=== PATIENT | female | born 1980 | race African-American/Black ===

== ENCOUNTER 2018-07-09 13:55 | Emergency (ER) | payer MEDICAID ==
--- NOTE | 2018-07-09 15:43 | RADIOLOGY REPORT (SQ) ---
EXAM DESCRIPTION: CHEST 2 VIEWS COMPLETED DATE/TIME: 07/09/2018 3:26 pm REASON FOR STUDY: sob COMPARISON: 11/09/2012 EXAM PARAMETERS: NUMBER OF VIEWS: two views TECHNIQUE: Digital Frontal and Lateral radiographic views of the chest acquired. RADIATION DOSE: NA LIMITATIONS: none FINDINGS: LUNGS AND PLEURA: No opacities, masses or pneumothorax. No pleural effusion. MEDIASTINUM AND HILAR STRUCTURES: No masses or contour abnormalities. HEART AND VASCULAR STRUCTURES: Heart normal size. No evidence for failure. BONES: No acute findings. HARDWARE: None in the chest. OTHER: No other significant finding. IMPRESSION: NO ACUTE RADIOGRAPHIC FINDING IN THE CHEST. TECHNICAL DOCUMENTATION: JOB ID: [id number] [employer]- All Rights Reserved Reading location - IP/workstation name: [email or web address]
[2018-07-09 18:01] LABS: ABSOLUTE BASOPHILS # (AUTO) 0.1 10^3/uL (0.0-0.2); ABSOLUTE EOSINOPHILS # (AUTO) 0.2 10^3/uL (0.0-0.6); ABSOLUTE LYMPHOCYTES (AUTO) 1.9 10^3/uL (0.5-4.7); ABSOLUTE MONOCYTES (AUTO) 0.6 10^3/uL (0.1-1.4); ABSOLUTE NEUT (AUTO) 3.3 10^3/uL (1.7-8.2); BASOPHILS % (AUTO) 0.9 % (0-2); EOSINOPHILS % (AUTO) 3.6 % (0-6); HEMATOCRIT 29.7 % (36.0-47.0); HEMOGLOBIN 9.1 g/dL (12.0-15.5); LYMPHOCYTES % (AUTO) 31.5 % (13-45); MEAN CORPUSCULAR HEMOGLOBIN 18.5 pg (27.0-33.4); MEAN CORPUSCULAR HGB CONC 30.5 g/dL (32.0-36.0); MONOCYTES % (AUTO) 9.8 % (3-13); PLATELET COUNT 369 10^3/uL (150-450); RED BLOOD COUNT 4.91 10^6/uL (3.72-5.28); RED CELL DISTRIBUTION WIDTH 19.9 % (11.5-14.0); SEGMENTED NEUTROPHILS % (AUTO) 54.2 % (42-78); TOTAL CELLS COUNTED % (AUTO) 100 %
[2018-07-09 18:11] LABS: INTERNATIONAL RATION (INR) 0.93; PROTHROMBIN TIME 12.9 SEC (11.4-15.4)
[2018-07-09 18:22] LABS: ALANINE AMINOTRANSFERASE 18 U/L (9-52); ALBUMIN 4.2 g/dL (3.5-5.0); ALKALINE PHOSPHATASE 94 U/L (38-126); ANION GAP 12 (5-19); ASPARTATE AMINO TRANSFERASE 21 U/L (14-36); BILIRUBIN,DIRECT 0.3 mg/dL (0.0-0.4); BILIRUBIN,TOTAL 0.3 mg/dL (0.2-1.3); BLOOD UREA NITROGEN 10 mg/dL (7-20); CALCIUM 9.3 mg/dL (8.4-10.2); CARBON DIOXIDE 25 mmol/L (22-30); CHLORIDE 105 mmol/L (98-107); CREATINE KINASE 75 U/L (30-135); GLUCOSE 77 mg/dL (75-110); POTASSIUM 4.9 mmol/L (3.6-5.0); SODIUM 141.7 mmol/L (137-145); TOTAL PROTEIN 7.8 g/dL (6.3-8.2)
[2018-07-09 18:31] LABS: CREATINE KINASE MB 0.35 ng/mL (<4.55)
[2018-07-09 18:32] LABS: TROPONIN I < 0.012 ng/mL
[2018-07-09 18:36] LABS: MEAN CORPUSCULAR VOLUME 61 fl (80-97)
[2018-07-09 18:40] LABS: POLYCHROMASIA SLIGHT
[2018-07-09 18:41] LABS: ANISOCYTOSIS 2+; HYPOCHROMASIA 1+; OVALOCYTES 2+; PLATELET COMMENT ADEQUATE; PLATELET LARGE PRESENT; POIKILOCYTOSIS 1+; TEAR DROP CELLS SLIGHT
--- NOTE | 2018-07-09 19:47 | EKG REPORT ---
SEVERITY:- BORDERLINE ECG - SINUS RHYTHM BORDERLINE T ABNORMALITIES, DIFFUSE LEADS : Confirmed by: Lars Julio MD 09-Jul-2018 19:47:32
--- NOTE | 2018-07-09 20:28 | RADIOLOGY REPORT (SQ) ---
EXAM DESCRIPTION: CTA CHEST COMPLETED DATE/TIME: 07/09/2018 8:09 pm REASON FOR STUDY: cp/sob COMPARISON: Chest x-ray 07/09/2018 CT abdomen and pelvis 10/05/2014 TECHNIQUE: CT scan of the chest performed using helical scanning technique with dynamic intravenous contrast injection. Images reviewed with lung, soft tissue and bone windows. Reconstructed coronal and sagittal MPR images reviewed. Additional 3 dimensional post-processing performed to develop Maximal Intensity Projection images (SD P). All images stored on PACS. All CT scanners at this facility use dose modulation, iterative reconstruction, and/or weight based d osing when appropriate to reduce radiation dose to as low as reasonably achievable (ALARA). [facility]: Dose Right [facility]: CareDose [facility]: Dose Right [facility]: Teradose 4D [facility]: [place] CONTRAST TYPE AND DOSE: contrast/concentration: Isovue 350.00 mg/ml; Total Contrast Delivered: 80.0 ml; Total Saline Delivered: 74.0 ml Contrast bolus optimized for the pulmonary arteries. Not diagnostic for the aorta. RENAL FUNCTION: BUN 10 creatinine 0.8 RADIATION DOSE: CT Rad equipment meets quality standard of care and radiation dose reduction techniq ues were employed. CTDIvol: 6.6 - 28.1 mGy. DLP: 1072 mGy-cm. . LIMITATIONS: None. FINDINGS: LUNGS AND PLEURA: No masses, infiltrates, or pneumothorax. No pleural effusions or pleura l calcifications. AORTA AND GREAT VESSELS: No aneurysm. Contrast bolus not optimized for the aorta. HEART: No pericardial effusion. No significant coronary artery calcifications. PULMONARY ARTERIES: No emboli visualized in the main pulmonary arteries or the segmental branches. HILAR AND MEDIASTINAL STRUCTURES: No identified masses or abnormal nodes. HARDWARE: None in the chest. UPPER ABDOMEN: There is a stable thin-walled cyst in the anterior abdominal wall anterior to the live r. THYROID AND OTHER SOFT TISSUES: No masses. No adenopathy. BONES: No acute or significant finding. 3D MIPS: Confirm above findings. OTHER: No other significant finding. IMPRESSION: 1. There is no evidence of pulmonary embolus. 2. There is a stable anterior abdominal cyst. COMMENT: Quality ID # [id number]: Final reports with documentation of one or more dose reduction techniques (e.g., Automated exposure control, adjustment of the mA and/or kV according to patient size, use of iterative reconstruction technique) TECHNICAL DOCUMENTATION: JOB ID: [id number] [employer]- All Rights Reserved Reading location - IP/workstation name: [email or web address]
--- NOTE | 2018-07-09 22:04 | ER Document Report ---
ED General - General Chief Complaint: Chest Pain Stated Complaint: CHEST PAINS Time Seen by Provider: 07/09/18 14:48 Mode of Arrival: Ambulatory Information source: Patient Notes: This is a 38-year-old female with no medical problems who presented to the emergency room with some sharp chest wall pain radiating to the left arm. She states she may have been a little short of breath. She was nauseated at the time. She states she has had a couple of episodes like this in the last week. She denies any known cardiology history. She has no history of VTE. No family history of PE or DVT. She does have a family history of coronary artery disease on her father's side TRAVEL OUTSIDE OF THE [place] IN LAST 30 DAYS: No - HPI Onset: Just prior to arrival Onset/Duration: Gradual Quality of pain: Sharp Severity: Moderate Pain Level: 3 Associated symptoms: Chest pain, Shortness of breath Exacerbated by: Movement Relieved by: Denies Similar symptoms previously: Yes Recently seen / treated by doctor: No - Related Data Allergies/Adverse Reactions: No Known Allergies Allergy (Verified 07/09/18 13:56) Past Medical History - General Information source: Patient - Social History Smoking Status: Never Smoker Cigarette use (# per day): No Chew tobacco use (# tins/day): No Frequency of alcohol use: None Drug Abuse: None Lives with: Family Family History: Reviewed & Not Pertinent Patient has suicidal ideation: No Patient has homicidal ideation: No - Medical History Medical History: Negative Renal/ Medical History: Denies: Hx Peritoneal Dialysis Past Surgical History: Reports: Hx Tonsillectomy, Hx Tubal Ligation - Immunizations Hx Diphtheria, Pertussis, Tetanus Vaccination: Yes Review of Systems - Review of Systems Constitutional: denies: Chills, Fever EENT: No symptoms reported Cardiovascular: See HPI Respiratory: See HPI Gastrointestinal: No symptoms reported Genitourinary: No symptoms reported Female Genitourinary: No symptoms reported Musculoskeletal: No symptoms reported Skin: No symptoms reported Hematologic/Lymphatic: No symptoms reported Neurological/Psychological: No symptoms reported Physical Exam - Vital signs Vitals: Temp Pulse Resp BP Pulse Ox 98.1 F 89 20 141/89 H 100 07/09/18 14:02 07/09/18 14:02 07/09/18 14:02 07/09/18 14:02 07/09/18 14:02 Notes: Physical exam: GENERAL: 38-year-old female, alert and oriented 3, no acute distress HEAD: Atraumatic, normocephalic. EYES: Pupils equal round and reactive to light, extraocular movements intact, sclera anicteric, conjunctiva are normal. ENT: TMs normal, nares patent, oropharynx clear without exudates. Moist mucous membranes. NECK: Normal range of motion, supple without obvious mass or JVD. LUNGS: Breath sounds clear to auscultation bilaterally and equal. No wheezes rales or rhonchi. HEART: Regular rate and rhythm without murmurs, rubs or gallops. ABDOMEN: Soft, normoactive bowel sounds. No tenderness to palpation. No guarding, no rebound. No masses appreciated. EXTREMITIES: Normal range of motion, no pitting or edema. No clubbing or cyanosis. NEUROLOGICAL: Cranial nerves II through XII grossly intact. Normal speech, moving all extremities. PSYCH: Normal mood, normal affect. SKIN: Warm, Dry, normal turgor, no rashes or lesions noted. Course - Re-evaluation Re-evalutation: 07/10/18 02:49 Note: Patient was comfortable at the time of my exam. She was no longer having any symptoms. Her heart score was 1 and her cardiac enzymes were normal. We will have her follow-up with her compensation specialist. She was PERC negative but did have a d-dimer which was in the positive range so a CTA was done and showed no evidence of pulmonary emboli. She had no calf tenderness or swelling. 07/10/18 02:49 - Vital Signs Vital signs: Temp Pulse Resp BP Pulse Ox 98.2 F 89 18 135/81 H 100 07/09/18 22:01 07/09/18 14:02 07/09/18 22:01 07/09/18 22:01 07/09/18 22:01 - Laboratory Result Diagrams: 07/09/18 16:40 07/09/18 16:40 Laboratory results interpreted by me: 07/09/18 07/09/18 16:40 16:40 Hgb 9.1 L Hct 29.7 L MCV 61 L MCH 18.5 L MCHC 30.5 L RDW 19.9 H D-Dimer 0.79 H - Diagnostic Test Radiology reviewed: Image reviewed, Reports reviewed - CTA shows no evidence of pulmonary emboli - EKG Interpretation by Me Rate: Normal Rhythm: NSR - EKG shows normal sinus rhythm with a ventricular rate of 87, no acute ST-T wave changes compared to EKG November 2012. Discharge - Discharge Clinical Impression: Chest wall pain Condition: Stable Disposition: HOME, SELF-CARE Additional Instructions: As we discussed, the CTA showed no evidence of blood clots in the lungs. The lungs look quite good. Your blood tests showed normal electrolytes, kidney function and your heart tests were normal. You do have some anemia which is most likely iron deficient anemia given your history. I would like you to follow-up with your primary care doctor. I do recommend he follow-up with a compensation specialist. I put Dr. Bowie's number on the chart. Call tomorrow and tell the electric distribution checker you were in the emergency room for chest pain and the ER doctor would like you seen within the next week or so. A copy of today's lab work and radiology reports with you to your primary care doctor. In the meantime, return to the emergency room for any worsening pain, worsening shortness of breath or any concerns or getting worse. As we discussed, the CT did show an incidental finding of a small cyst in the abdominal wall on the right side of the abdomen. It does appear to be a simple cyst. Forms: Return to Work Referrals: SHU BOWIE MD [ACTIVE STAFF] - Follow up tomorrow (This is the number the compensation specialist) MELISSA SCRUGGS MD [ACTIVE STAFF] - Follow up tomorrow (Call tomorrow for the next available appointment. This is the number for a good primary care doctor affiliated with the hospital)
[2018-07-09 22:26] VITALS: BP 135/81
[2018-07-11 13:36] LABS: PATH REVIEW PATHOLOGIST REVIEWED
== END 2018-07-09 22:26 | disposition home or self-care (01) ==
LOC: ER 13:55
DX: R07.89 Other chest pain (principal); R11.0 Nausea; R79.1 Abnormal coagulation profile; Z82.49 Family history of ischemic heart disease and other diseases of the circulatory system
CPT/HCPCS: 36415; 71046; 71275; 80053; 82550; 82553; 84484; 85025; 85379; 85610; 93005; 93010; 99285

== ENCOUNTER 2019-03-15 22:39 | Emergency (ER) | payer SELFPAY ==
--- NOTE | 2019-03-15 23:12 | ER Document Report ---
ED General - General Chief Complaint: Chest Pain Stated Complaint: CHEST PAIN Time Seen by Provider: 03/15/19 23:10 Notes: Patient is a pleasant 39-year-old female presents with complaints of feeling unwell today. She says she still feels nauseous and well on her way home from work. She did develop a slight headache which she took some ifec-kdm-blzpbhb medicine for at home. She says her headache went away but she started to feel anxious and felt chest tightness. She said she started to hyperventilate panic and therefore called the ambulance. She is brought to the ER. When she got to the ER she was found to have a fever of 103. She says she has had multiple episodes of vomiting. No diarrhea. No abdominal pain she has a some pain in epigastric region associate with the vomiting. No blood in her emesis. No blood in her stool. She is currently on her menstrual period. No dysuria. No abnormal vaginal discharge. No sick contacts that she is aware of. No recent travel outside the country. She takes no medications and is otherwise healthy. TRAVEL OUTSIDE OF THE [place] IN LAST 30 DAYS: No - Related Data Allergies/Adverse Reactions: No Known Allergies Allergy (Verified 07/09/18 13:56) Past Medical History - Social History Smoking Status: Never Smoker Frequency of alcohol use: None Drug Abuse: None Family History: Reviewed & Not Pertinent Renal/ Medical History: Denies: Hx Peritoneal Dialysis Past Surgical History: Reports: Hx Tonsillectomy, Hx Tubal Ligation - Immunizations Hx Diphtheria, Pertussis, Tetanus Vaccination: Yes Review of Systems - Review of Systems Notes: My Normal Review Basic REVIEW OF SYSTEMS: CONSTITUTIONAL : Denies fever, chills, or sweats. Denies recent illness. EENT: Denies eye, ear, throat, or mouth pain or symptoms. Denies nasal or sinus congestion. CARDIOVASCULAR: Chest tightness RESPIRATORY: Denies cough, cold, or chest congestion. Denies shortness of breath, difficulty breathing, or wheezing. GASTROINTESTINAL: mild epigastric abdominal pain. recurrent vomiting GENITOURINARY: Denies difficulty urinating, painful urination, burning, frequency, or blood in urine. FEMALE GENITOURINARY: Denies vaginal bleeding, abnormal or irregular periods. LMP: Currently on menstrual period MUSCULOSKELETAL: Denies neck or back pain or joint pain or swelling. SKIN: Denies rash or skin lesions. HEMATOLOGIC : Denies easy bruising or bleeding. NEUROLOGICAL: Denies altered mental status or loss of consciousness. Had a headache which has since resolved.. Denies weakness or paralysis or loss of use of either side. Denies problems with gait or speech. Denies sensory or motor loss. ALL OTHER SYSTEMS REVIEWED AND NEGATIVE. Physical Exam - Vital signs Vitals: Temp Pulse Resp BP Pulse Ox 103.0 F H 106 H 20 137/85 H 100 03/15/19 23:02 03/15/19 23:02 03/15/19 23:02 03/15/19 23:02 03/15/19 23:02 - Notes Notes: General Appearance: Well nourished, alert, cooperative, no acute distress, no obvious discomfort. Anxious appearing Vitals: reviewed, See vital signs table. Head: no swelling or tenderness to the head Eyes: PERRL, EOMI, Conjuctiva clear Mouth: No decreasd moisture Throat: No tonsillar inflammation, No airway obstruction, No lymphadenopathy Neck: Supple, no neck tenderness Lungs: No wheezing, No rales, No rhonci, No accessory muscle use, good air exchange bilaterally. Heart: Normal rate, Regular rythm, No murmur, no rub Abdomen: Normal BS, soft, No rigidity, mild epigastric abdominal tenderness to palpation. No right upper quadrant tenderness to palpation. Lower abdomen is nontender., No guarding, no rebound, no abdominal masses, no organomegaly Extremities: good pulses in all extremities, no swelling or tenderness in the extremities, no edema. Skin: warm, dry, appropriate color, no rash Neuro: speech clear, oriented x 3, normal affect, responds appropriately to questions. Course - Re-evaluation Re-evalutation: 03/16/19 01:38 On reevaluation her nausea is much improved. She still has some mild intermittent tachycardia and still has not urinated therefore give her another liter of fluids. 03/16/19 05:41 Urinalysis shows evidence of urinary tract infection. This likely she is having a fever and felt unwell today. Vital signs are much improved and she looks and feels much improved. I will discharge her Keflex as well as with Zofran. I encouraged her return to ER if she has recurrent fevers not responding to Tylenol, vomiting, or she feels that she is worsening in any way. Patient agrees with plan will be discharged home. Dictation of this chart was performed using voice recognition software; therefore, there may be some unintended grammatical errors. - Vital Signs Vital signs: Temp Pulse Resp BP Pulse Ox 98.7 F 106 H 19 111/72 98 03/16/19 01:54 03/15/19 23:02 03/16/19 03:29 03/16/19 03:33 03/16/19 03:29 - Laboratory Result Diagrams: 03/15/19 23:24 03/15/19 23:24 Laboratory results interpreted by me: 03/15/19 03/15/19 03/16/19 23:24 23:24 02:05 Hgb 7.9 L Hct 26.1 L MCV 59 L MCH 17.8 L MCHC 30.4 L RDW 20.4 H Seg Neuts % (Manual) 90 H Band Neutrophils % 1 L Lymphocytes % (Manual) 6 L Monocytes % (Manual) 2 L Carbon Dioxide 21 L Urine Ketones TRACE H Urine Blood LARGE H Urine Nitrite POSITIVE H Ur Leukocyte Esterase LARGE H - EKG Interpretation by Me Additional EKG results interpreted by me: 03/15/19 23:11 EKG is reviewed and interpreted by me. EKG shows sinus rhythm with a rate of [address] segment elevation. VA interval, QRS duration, QT intervals are within normal range. Old EKG for comparison is from July 09, 2018. Discharge - Discharge Clinical Impression: Anemia, UTI (urinary tract infection), Fever, Chest tightness Condition: Good Disposition: HOME, SELF-CARE Additional Instructions: Your urinalysis shows evidence of a urinary tract infection. This likely is what is causing your fever and making you feel unwell. Please take the antibiotic as prescribed. Please have a low threshold to return to ER if you have worsening fevers not responding to Tylenol, intractable vomiting, severe abdominal pain, severe chest pain, or if you feel that you are worsening in any way. Please follow-up with a physician in 2 to 3 days for reevaluation. You are welcome to return to the ER for reevaluation if you do not have a physician in community to follow-up with. Prescriptions: RX: Cephalexin Monohydrate [Keflex 500 mg Capsule] 500 mg PO BID #14 capsule Ondansetron [Zofran Odt 4 mg Tablet] 1 tab PO Q4H PRN #15 tab.rapdis PRN Reason: For Nausea/Vomiting Forms: Return to Work
[2019-03-15] MEDS ORDERED: NORMAL SALINE 1000 ML 1,000 ML IV ONE (23:17)
[2019-03-15] MEDS ORDERED: ONDANSETRON HCL INJ/PF 4 MG/2 ML SDV IV ONE (23:17)
[2019-03-15] MEDS ORDERED: ACETAMINOPHEN 325 MG TABLET PO ONE (23:19)
[2019-03-15 23:38] LABS: HEMATOCRIT 26.1 % (36.0-47.0); MEAN CORPUSCULAR HEMOGLOBIN 17.8 pg (27.0-33.4); MEAN CORPUSCULAR HGB CONC 30.4 g/dL (32.0-36.0); PLATELET COUNT 224 10^3/uL (150-450); RED BLOOD COUNT 4.47 10^6/uL (3.72-5.28); RED CELL DISTRIBUTION WIDTH 20.4 % (11.5-14.0)
[2019-03-15 23:46] LABS: HEMOGLOBIN 7.9 g/dL (12.0-15.5)
--- NOTE | 2019-03-15 23:46 | EKG REPORT ---
SEVERITY:- BORDERLINE ECG - SINUS TACHYCARDIA BORDERLINE T ABNORMALITIES, DIFFUSE LEADS : Confirmed by: Enid Sampson MD 15-Mar-2019 23:46:23
--- NOTE | 2019-03-15 23:57 | RADIOLOGY REPORT (SQ) ---
EXAM DESCRIPTION: XR CHEST 1 VIEW COMPLETED DATE/TME: 03/15/2019 23:17 CLINICAL HISTORY: 39 years, Female, fever, chest pain COMPARISON: Prior study from 07/09/2018 NUMBER OF VIEWS: One TECHNIQUE: Single frontal view of the chest was obtained LIMITATIONS: None. FINDINGS: Cardiac and mediastinal contours are normal in appearance. Lungs are clear. No pleural effusion or pneumothorax. IMPRESSION: No acute disease. copyright 2010 [employer]- All Rights Reserved
[2019-03-15 23:59] LABS: ALANINE AMINOTRANSFERASE 21 U/L (9-52); ALBUMIN 3.7 g/dL (3.5-5.0); ALKALINE PHOSPHATASE 101 U/L (38-126); ANION GAP 13 (5-19); ASPARTATE AMINO TRANSFERASE 18 U/L (14-36); BILIRUBIN,DIRECT 0.2 mg/dL (0.0-0.4); BILIRUBIN,TOTAL 0.6 mg/dL (0.2-1.3); BLOOD UREA NITROGEN 14 mg/dL (7-20); CALCIUM 9.2 mg/dL (8.4-10.2); CARBON DIOXIDE 21 mmol/L (22-30); CHLORIDE 105 mmol/L (98-107); GLUCOSE 107 mg/dL (75-110); POTASSIUM 3.9 mmol/L (3.6-5.0); SODIUM 139.1 mmol/L (137-145)
[2019-03-16] LABS: ABSOLUTE LYMPHOCYTES# (MANUAL) 0.5 10^3/uL (0.5-4.7); ABSOLUTE MONOCYTES # (MANUAL) 0.2 10^3/uL (0.1-1.4); ABSOLUTE NEUTROPHILS# (MANUAL) 7.3 10^3/uL (1.7-8.2); BAND NEUTROPHILS % (MANUAL) 1 % (3-5); BASOPHILS % (MANUAL) 0 % (0-2); EOSINOPHILS % (MANUAL) 1 % (0-6); HYPOCHROMASIA 1+; LYMPHOCYTES % (MANUAL) 6 % (13-45); MONOCYTES % (MANUAL) 2 % (3-13); POLYCHROMASIA SLIGHT; SEGMENTED NEUTROPHILS % (MAN) 90 % (42-78); TOTAL CELLS COUNTED 100
[2019-03-16 00:01] LABS: ANISOCYTOSIS 2+; BURR CELLS 1+; OVALOCYTES SLIGHT; PLATELET COMMENT ADEQUATE; POIKILOCYTOSIS 1+; SCHISTOCYTES SLIGHT; TARGET CELLS SLIGHT
[2019-03-16 00:02] LABS: MEAN CORPUSCULAR VOLUME 59 fl (80-97)
[2019-03-16 01:06] LABS: A TYPE INFLUENZA AG NEGATIVE (NEGATIVE); B INFLUENZA AG NEGATIVE (NEGATIVE)
[2019-03-16] MEDS ORDERED: NORMAL SALINE 1000 ML 1,000 ML IV ONE (01:33)
[2019-03-16 02:21] LABS: APPEARANCE,URINE CLOUDY; BILIRUBIN,URINE NEGATIVE (NEGATIVE); COLOR,URINE YELLOW; GLUCOSE, URINE NEGATIVE (NEGATIVE); KETONES,URINE TRACE mg/dL (NEGATIVE); LEUKOCYTE ESTERASE,URINE LARGE (NEGATIVE); NITRITE,URINE POSITIVE (NEGATIVE); PROTEIN,URINE NEGATIVE (NEGATIVE); UROBILINOGEN,URINE NEGATIVE mg/dL (<2.0)
[2019-03-16] MEDS ORDERED: CEFTRIAXONE 1 GM/D5W RTU 1 GM/50 ML RTUPB IV ONE (02:35)
[2019-03-16] MEDS ORDERED: ONDANSETRON ODT 4 MG TAB (6 TAB/ER DISP) PO PRN (03:14)
[2019-03-16 03:34] VITALS: BP 111/72
== END 2019-03-16 03:32 | disposition home or self-care (01) ==
LOC: ER 22:39
DX: R07.89 Other chest pain (principal); N39.0 Urinary tract infection, site not specified; D64.9 Anemia, unspecified; R50.9 Fever, unspecified; R11.2 Nausea with vomiting, unspecified; R10.13 Epigastric pain; R00.0 Tachycardia, unspecified
CPT/HCPCS: 93005; 99285; 96361; 96375; 96365; 36415; 87086; 84703; 85025; 87088; 80053; 81001; 84484; 87186; 87804; 71045; 93010; J2405; J7030 ×2; J0696

== ENCOUNTER 2019-04-11 20:09 | Emergency (ER) | payer SELFPAY ==
[2019-04-11] MEDS ORDERED: IPRATROPIUM/ALBUTEROL 0.5-2.5 MG/3 ML AMPUL NEB ONE (22:18)
[2019-04-11] MEDS ORDERED: ACETAMINOPHEN 325 MG TABLET PO ONE (22:19)
[2019-04-11] MEDS ORDERED: DEXAMETHASONE 4 MG TABLET PO ONE (22:19)
[2019-04-11] MEDS ORDERED: DOXYCYCLINE HYCLATE 100 MG TABLET PO ONE (22:19)
[2019-04-11] MEDS ORDERED: IBUPROFEN 600 MG TABLET PO ONE (22:19)
--- NOTE | 2019-04-11 22:23 | ER Document Report ---
ED General - General Chief Complaint: Cold Symptoms Stated Complaint: FEVER Time Seen by Provider: 04/11/19 22:02 Mode of Arrival: Ambulatory Information source: Patient, [facility] Records Notes: 39-year-old female with no significant past medical history presents with complaint of cough, sore throat, left ear pain, headache. Patient states cough and sore throat started 2 weeks prior to arrival when she was incarcerated. She states just prior to arrival she had a pop in her left ear followed by a mild aching headache in her forehead. Patient reports the cough as productive with green sputum. She does admit to chills, sweats and body aches. Patient has not tried any medication for this. Surgical history includes tonsillectomy, tubal ligation. Patient does not smoke drink or do drugs. She has no known allergies. Patient's urine is bloody but she is currently menstruating. TRAVEL OUTSIDE OF THE [place] IN LAST 30 DAYS: No - HPI Onset: Other Onset/Duration: Gradual, Persistent Quality of pain: Achy Severity: Mild Associated symptoms: Chills, Productive cough, Earache, Nausea, Vomiting, Rhinnorhea, Sore throat, Sweating. denies: Shortness of breath Exacerbated by: Coughing Relieved by: Denies Similar symptoms previously: Yes Recently seen / treated by doctor: No - Related Data Allergies/Adverse Reactions: No Known Allergies Allergy (Verified 07/09/18 13:56) Past Medical History - General Information source: Patient - Social History Smoking Status: Never Smoker Chew tobacco use (# tins/day): No Frequency of alcohol use: None Drug Abuse: None Lives with: Family Family History: Reviewed & Not Pertinent Patient has suicidal ideation: No Patient has homicidal ideation: No - Medical History Medical History: Negative Renal/ Medical History: Denies: Hx Peritoneal Dialysis Psychiatric Medical History: Reports: Hx Depression - and anxiety Past Surgical History: Reports: Hx Tonsillectomy, Hx Tubal Ligation - Immunizations Hx Diphtheria, Pertussis, Tetanus Vaccination: Yes Review of Systems - Review of Systems Notes: REVIEW OF SYSTEMS: CONSTITUTIONAL : Denies fever, chills, or sweats. Denies recent illness. Denies weight loss, recent hospitalizations. EENT: Denies visual changes, eye pain. Denies oral lesions, difficulty swallowing. CARDIOVASCULAR: Denies chest pain. Denies palpitations. Denies lower extremity edema. RESPIRATORY: + cough. Denies shortness of breath, wheezing. GASTROINTESTINAL: Denies abdominal pain or distention. Denies nausea, vomiting, or diarrhea. Denies blood in vomitus, stools, or per rectum. Denies black, tarry stools. Denies constipation. GENITOURINARY: Denies difficulty urinating, painful urination, frequency, blood in urine, or vaginal discharge. MUSCULOSKELETAL: Denies back or neck pain or stiffness. Denies joint pain or swelling. SKIN: Denies rash, lesions or sores. HEMATOLOGIC : Denies easy bruising or bleeding. LYMPHATIC: Denies swollen glands. NEUROLOGICAL: Denies confusion or altered mental status. Denies loss of consciousness. Denies dizziness or lightheadedness. Denies headache. Denies weakness or paralysis. Denies problems difficulty with ambulation, slurred speech. Denies sensory loss, numbness, or tingling. Denies seizures. PSYCHIATRIC: Denies anxiety or stress. Denies depression, suicidal ideation, or homicidal ideation. Denies visual or auditory hallucinations. Physical Exam - Vital signs Vitals: Temp Pulse Resp BP Pulse Ox 97.8 F 73 16 146/89 H 100 04/11/19 21:03 04/11/19 21:03 04/11/19 21:03 04/11/19 21:03 04/11/19 21:03 - Notes Notes: PHYSICAL EXAMINATION: GENERAL: Well-appearing, well-nourished and in no acute distress. HEAD: Atraumatic, normocephalic. EYES: Pupils equal round and reactive to light, extraocular movements intact, conjunctiva are normal. ENT: Nares patent, oropharynx clear without exudates. Moist mucous membranes. NECK: Normal range of motion, supple without lymphadenopathy LUNGS: Breath sounds clear to auscultation bilaterally and equal. No wheezes rales or rhonchi. HEART: Regular rate and rhythm without murmurs ABDOMEN: Soft, nontender, nondistended abdomen. No guarding, no rebound. No masses appreciated. Female : deferred Musculoskeletal: Normal range of motion, no pitting or edema. No cyanosis. NEUROLOGICAL: Cranial nerves grossly intact. Normal speech, normal gait. Normal sensory, motor exams PSYCH: Normal mood, normal affect. SKIN: Warm, Dry, normal turgor, no rashes or lesions noted. Course - Re-evaluation Re-evalutation: Temp Pulse Resp BP Pulse Ox 97.8 F 73 16 146/89 H 100 04/11/19 21:03 04/11/19 21:03 04/11/19 21:03 04/11/19 21:03 04/11/19 21:03 04/12/19 00:15 Presentation is most consistent with a viral upper respiratory infection. Patient is overall well appearance, vitals within normal limits, well-hydrated. Patient denies any headache, neck pain, and has no evidence of meningismus on examination. Lungs are clear bilaterally. No evidence of respiratory distress. Based on clinical exam and history, I do not suspect an acute pneumonia, meningitis, strep pharyngitis, or an acute encephalitis. No laboratory or imaging testing is indicated at this time. Will discharge patient with return precautions and followup recommendations. They are in agreement this plan have verbalized understanding return precautions. - Vital Signs Vital signs: Temp Pulse Resp BP Pulse Ox 97.8 F 73 16 146/89 H 100 04/11/19 21:03 04/11/19 21:03 04/11/19 21:03 04/11/19 21:03 04/11/19 21:03 Discharge - Discharge Clinical Impression: Cough, Ear pain, left URI (upper respiratory infection) Qualifiers: URI type: unspecified URI Qualified Code(s): J06.9 - Acute upper respiratory infection, unspecified Pharyngitis Qualifiers: Pharyngitis/tonsillitis etiology: unspecified etiology Qualified Code(s): J02.9 - Acute pharyngitis, unspecified Headache Qualifiers: Headache type: unspecified Headache chronicity pattern: unspecified pattern Intractability: not intractable Qualified Code(s): R51 - Headache Condition: Good Disposition: HOME, SELF-CARE Instructions: Upper Respiratory Illness ([facility]), Viral Syndrome ([facility]) Additional Instructions: Your symptoms are most likely due to a viral infection it should resolve over the next 7-14 days. You should take erzs-uzi-zieyopn guanfacine per bottle instructions to help thin the mucus. For nasal congestion: I would recommend that you get psvs-sbe-dimsomd oxymetazoline also known is afrin. Use only per bottle instructions and be sure to never use this for more than 3 days if you can develop severe rebound congestion. You may also use tylenol or ibuprofen as needed for aches and thorat discomfort. Please be sure to drink plenty of fluids and get rest. Return to the emergency department he began having difficulty breathing, chest pain, persistent vomiting, or any other symptoms that are conc erning to you. Prescriptions: Doxycycline Hyclate 100 mg PO BID #14 capsule Fluticasone Propionate [Flonase Nasal [place] 50 Mcg/[place] 16 gm] 2 sprays NASL Q12 #1 inhaler Guaifenesin/Pseudoephedrne HCl [Mucinex D ER 1,200-120 mg Tab] 1 each PO Q12H 5 Days #10 tab.er.12h Ibuprofen [Motrin 600 Mg Tablet] 600 mg PO TID #15 tablet Forms: Elevated Blood Pressure
[2019-04-12] MEDS ORDERED: ALBUTEROL SULFATE HFA (90 MCG/PUFF) 8 GM MDI (1 MDI/ER DISP) IH PRN (00:05)
[2019-04-12 03:45] VITALS: BP 150/83
== END 2019-04-12 00:30 | disposition home or self-care (01) ==
LOC: ER 20:09
DX: J02.9 Acute pharyngitis, unspecified (principal); J06.9 Acute upper respiratory infection, unspecified; R51 Headache; R05 Cough; R50.9 Fever, unspecified; H92.02 Otalgia, left ear; Z98.51 Tubal ligation status
CPT/HCPCS: 94640; 99283; J7620

== ENCOUNTER 2020-01-04 13:38 | Emergency (ER) | payer MEDICAID ==
[2020-01-04] MEDS ORDERED: ONDANSETRON HCL INJ/PF 4 MG/2 ML SDV IV ONE (14:42)
[2020-01-04] MEDS ORDERED: NORMAL SALINE 1000 ML 1,000 ML IV ONE (14:42)
--- NOTE | 2020-01-04 14:44 | ER Document Report ---
ED Medical Screen (RME) - General Stated Complaint: ABDOMINAL PAIN Time Seen by Provider: 01/04/20 14:38 Notes: Patient is a 39-year-old female who presents emergency department with a chief complaint of abdominal pain. Patient states that her symptoms started 2 days ago. Patient states that she has also been vomiting. States, "I feel like there is a ball in the middle of my upper stomach." Patient states that she is having bowel movements, denies diarrhea. Last menstrual cycle was December 15. Exam: Tenderness to mid upper abdomen. Patient refused pain medication at this time. Patient will receive Zofran and fluids and will be evaluated in the back. Exam limited due to patient in the sitting position. I have greeted and performed a rapid initial assessment of this patient. A comprehensive ED assessment and evaluation of the patient, analysis of test results and completion of medical decision making process will be conducted by an additional ED providers. TRAVEL OUTSIDE OF THE [place] IN LAST 30 DAYS: No - Related Data Allergies/Adverse Reactions: No Known Allergies Allergy (Verified 07/09/18 13:56) Past Medical History Renal/ Medical History: Denies: Hx Peritoneal Dialysis Psychiatric Medical History: Reports: Hx Depression - and anxiety Past Surgical History: Reports: Hx Tonsillectomy, Hx Tubal Ligation - Immunizations Hx Diphtheria, Pertussis, Tetanus Vaccination: Yes Physical Exam - Vital signs Vitals: Temp Pulse Resp BP Pulse Ox 98.3 F 74 20 146/72 H 100 01/04/20 14:08 01/04/20 14:08 01/04/20 14:08 01/04/20 14:08 01/04/20 14:08 Course - Vital Signs Vital signs: Temp Pulse Resp BP Pulse Ox 98.3 F 74 20 146/72 H 100 01/04/20 14:08 01/04/20 14:08 01/04/20 14:08 01/04/20 14:08 01/04/20 14:08
[2020-01-04] MEDS ORDERED: KETOROLAC TROMETHAMINE INJ/PF 30 MG/1 ML SDV IV ONE (16:18)
[2020-01-04 16:19] LABS: APPEARANCE,URINE SLIGHTLY-CLOUDY; BILIRUBIN,URINE NEGATIVE (NEGATIVE); COLOR,URINE YELLOW; GLUCOSE, URINE NEGATIVE (NEGATIVE); KETONES,URINE NEGATIVE (NEGATIVE); LEUKOCYTE ESTERASE,URINE TRACE (NEGATIVE); NITRITE,URINE NEGATIVE (NEGATIVE); PROTEIN,URINE NEGATIVE (NEGATIVE); URINE SPECIFIC GRAVITY 1.017; UROBILINOGEN,URINE NEGATIVE mg/dL (<2.0)
[2020-01-04 16:21] LABS: HEMATOCRIT 24.8 % (36.0-47.0); MEAN CORPUSCULAR HEMOGLOBIN 15.7 pg (27.0-33.4); MEAN CORPUSCULAR HGB CONC 28.3 g/dL (32.0-36.0); PLATELET COUNT 235 10^3/uL (150-450); RED BLOOD COUNT 4.46 10^6/uL (3.72-5.28); RED CELL DISTRIBUTION WIDTH 21.7 % (11.5-14.0); WHITE BLOOD COUNT 6.1 10^3/uL (4.0-10.5)
[2020-01-04 16:31] LABS: ALBUMIN 4.1 g/dL (3.5-5.0); ALKALINE PHOSPHATASE 92 U/L (38-126); ANION GAP 10 (5-19); ASPARTATE AMINO TRANSFERASE 33 U/L (14-36); BILIRUBIN,DIRECT 0.3 mg/dL (0.0-0.4); BILIRUBIN,TOTAL 0.5 mg/dL (0.2-1.3); BLOOD UREA NITROGEN 11 mg/dL (7-20); CALCIUM 8.7 mg/dL (8.4-10.2); CARBON DIOXIDE 21 mmol/L (22-30); CHLORIDE 107 mmol/L (98-107); GLUCOSE 84 mg/dL (75-110); POTASSIUM 5.1 mmol/L (3.6-5.0); TOTAL PROTEIN 7.9 g/dL (6.3-8.2)
--- NOTE | 2020-01-04 16:46 | RADIOLOGY REPORT (SQ) ---
EXAM DESCRIPTION: CT ABD/PELVIS NO ORAL OR IV COMPLETED DATE/TIME: 01/04/2020 4:28 pm REASON FOR STUDY: right lower quad pain COMPARISON: CT of the abdomen and pelvis without contrast from 10/05/2014. TECHNIQUE: CT scan of the abdomen and pelvis performed without intravenous or oral contrast. Images reviewed with lung, soft tissue, and bone windows. Reconstructed coronal and sagittal MPR images revi ewed. All images stored on PACS. All CT scanners at this facility use dose modulation, iterative reconstruction, and/or weight based d osing when appropriate to reduce radiation dose to as low as reasonably achievable (ALARA). [facility]: Dose Right [facility]: CareDose [facility]: Dose Right [facility]: Teradose 4D [facility]: [employer] RADIATION DOSE: CT Rad equipment meets quality standard of care and radiation dose reduction techniq ues were employed. CTDIvol: 17.1 mGy. DLP: 944 mGy-cm. LIMITATIONS: None. FINDINGS: LOWER CHEST: No acute findings. NON-CONTRASTED LIVER, SPLEEN, ADRENALS: Evaluation is limited due to the absence of intravenous contr ast. The morphology of the liver is non cirrhotic. There is no CT evidence hepatic steatosis. The spleen is normal in size. There is no abnormality of the adrenal glands. PANCREAS: No masses. No peripancreatic inflammatory changes. GALLBLADDER: No abnormality that is apparent on CT. RIGHT KIDNEY AND URETER: Evaluation is limited due to the absence of intravenous contrast. There is no hydronephrosis, nephrolithiasis, hydroureter or ureterolithiasis. LEFT KIDNEY AND URETER: Evaluation is limited due to the absence of intravenous contrast. There is n o hydronephrosis, nephrolithiasis, hydroureter or ureterolithiasis. AORTA AND RETROPERITONEUM: No aneurysm of the abdominal aorta. There is also no retroperitoneal sophia opathy, hemorrhage or mass. BOWEL AND PERITONEAL CAVITY: Colonic diverticulosis without diverticulitis. There is no bowel obstru ction, bowel wall thickening or pericolonic/ perienteric inflammation. There is no mesenteric adenop athy, free intraperitoneal fluid or mesenteric/omental inflammation. APPENDIX: Normal. 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 The urinary bladder is partially distended. There is a fat containing left inguinal hernia. BONES: No acute findings OTHER: No other finding. IMPRESSION: 1. No acute intra-abdominal abnormality. 2. Enlarged fibroid uterus. 3. Colonic diverticulosis without diverticulitis. COMMENT: Quality ID # [id number]: Final reports with documentation of one or more dose reduction techniques (e.g., Automated exposure control, adjustment of the mA and/or kV according to patient size, use of iterative reconstruction technique) TECHNICAL DOCUMENTATION: JOB ID: [id number] 2010 [employer]- All Rights Reserved Reading location - IP/workstation name: [email or web address]
[2020-01-04 17:03] LABS: MEAN CORPUSCULAR VOLUME 56 fl (80-97)
[2020-01-04 17:11] LABS: ABSOLUTE LYMPHOCYTES# (MANUAL) 1.6 10^3/uL (0.5-4.7); ABSOLUTE MONOCYTES # (MANUAL) 0.2 10^3/uL (0.1-1.4); BASOPHILS % (MANUAL) 0 % (0-2); EOSINOPHILS % (MANUAL) 3 % (0-6); LYMPHOCYTES % (MANUAL) 27 % (13-45); METAMYELOCYTES % (MANUAL) 1 % (0-1); MONOCYTES % (MANUAL) 3 % (3-13); SEGMENTED NEUTROPHILS % (MAN) 66 % (42-78); TOTAL CELLS COUNTED 100
[2020-01-04 17:14] LABS: ANISOCYTOSIS 3+; BURR CELLS SLIGHT; HYPOCHROMASIA 1+; OVALOCYTES 2+; POIKILOCYTOSIS 2+; POLYCHROMASIA SLIGHT; SCHISTOCYTES SLIGHT
[2020-01-04 17:15] LABS: PLATELET COMMENT ADEQUATE
[2020-01-04 17:16] LABS: PLATELET LARGE PRESENT; TOXIC VACUOLATION PRESENT
[2020-01-04 17:19] LABS: TEAR DROP CELLS SLIGHT
--- NOTE | 2020-01-04 18:43 | ER Document Report ---
ED General - General Chief Complaint: Abdominal Pain Stated Complaint: ABDOMINAL PAIN Time Seen by Provider: 01/04/20 14:38 Mode of Arrival: Ambulatory Information source: Patient TRAVEL OUTSIDE OF THE [place] IN LAST 30 DAYS: No - HPI Notes: Patient presents complaining of lower abdominal pain. She states that it is bilateral and crampy. Nothing makes it better or worse. It is been intermittent. It is moderate in intensity. She is had some nausea. No significant diarrhea or constipation. No fevers. No significant problems with urination. She does have a history of dysfunctional uterine bleeding. No recent increase in vaginal bleeding. - Related Data Allergies/Adverse Reactions: No Known Allergies Allergy (Verified 01/04/20 14:43) Past Medical History - General Information source: Patient - Social History Smoking Status: Never Smoker Frequency of alcohol use: Rare Drug Abuse: None Family History: Reviewed & Not Pertinent Patient has suicidal ideation: No Patient has homicidal ideation: No Renal/ Medical History: Denies: Hx Peritoneal Dialysis Psychiatric Medical History: Reports: Hx Depression - and anxiety Past Surgical History: Reports: Hx Tonsillectomy, Hx Tubal Ligation - Immunizations Hx Diphtheria, Pertussis, Tetanus Vaccination: Yes Review of Systems - Review of Systems Constitutional: denies: Chills, Fever Cardiovascular: denies: Chest pain, Palpitations Respiratory: denies: Cough, Short of breath -: Yes All other systems reviewed and negative Physical Exam - Vital signs Vitals: Temp Pulse Resp BP Pulse Ox 98.3 F 74 20 146/72 H 100 01/04/20 14:08 01/04/20 14:08 01/04/20 14:08 01/04/20 14:08 01/04/20 14:08 Interpretation: Normal - General General appearance: Appears well, Alert - HEENT Head: Normocephalic, Atraumatic Eyes: Normal Pupils: PERRL - Respiratory Respiratory status: No respiratory distress Chest status: Nontender Breath sounds: Normal Chest palpation: Normal - Cardiovascular Rhythm: Regular Heart sounds: Normal auscultation Murmur: No - Abdominal Inspection: Normal Distension: No distension Bowel sounds: Normal Tenderness: Tender - Mild suprapubic crampy tenderness to palpation Organomegaly: No organomegaly - Back Back: Normal, Nontender - Extremities General upper extremity: Normal inspection, Nontender, Normal color, Normal ROM, Normal temperature General lower extremity: Normal inspection, Nontender, Normal color, Normal ROM, Normal temperature, Normal weight bearing. No: Braxton's sign - Neurological Neuro grossly intact: Yes Cognition: Normal Orientation: AAOx4 [place] Coma Scale Eye Opening: Spontaneous Samuel Coma Scale Verbal: Oriented Samuel Coma Scale Motor: Obeys Commands Samuel Coma Scale Total: 15 Speech: Normal Motor strength normal: LUE, RUE, LLE, RLE Sensory: Normal - Psychological Associated symptoms: Normal affect, Normal mood - Skin Skin Temperature: Warm Skin Moisture: Dry Skin Color: Normal Course - Re-evaluation Re-evalutation: 01/04/20 18:39 Patient reexamined at this time. She is comfortable stable vital signs. Her hemoglobin is 7 however it was 7.91-year ago. She states she is not currently on iron pills. Since patient has a normal heart rate and a normal blood pressure and her hemoglobin is not significantly changed from 1 year ago I will start the patient on iron pills. I also feel this is prudent because patient has follow-up next week at the [facility] office. - Vital Signs Vital signs: Temp Pulse Resp BP Pulse Ox 98.3 F 74 20 146/72 H 100 01/04/20 14:08 01/04/20 14:08 01/04/20 14:08 01/04/20 14:08 01/04/20 14:08 - Laboratory Result Diagrams: 01/04/20 15:53 01/04/20 15:53 Laboratory results interpreted by me: 01/04/20 01/04/20 01/04/20 15:53 15:53 15:53 Hgb 7.0 L Hct 24.8 L MCV 56 L MCH 15.7 L MCHC 28.3 L RDW 21.7 H Potassium 5.1 H Carbon Dioxide 21 L Ur Leukocyte Esterase TRACE H - Diagnostic Test Radiology reviewed: Image reviewed, Reports reviewed Discharge - Discharge Clinical Impression: Anemia Qualifiers: Anemia type: iron deficiency Iron deficiency anemia type: chronic blood loss Qualified Code(s): D50.0 - Iron deficiency anemia secondary to blood loss ( chronic) Abdominal pain Qualifiers: Abdominal location: lower abdomen, unspecified Qualified Code(s): R10.30 - Lower abdominal pain, unspecified Fibroid, uterine Qualifiers: Uterine leiomyoma location: unspecified location Qualified Code(s): D25.9 - Leiomyoma of uterus, unspecified Condition: Stable Disposition: HOME, SELF-CARE Instructions: Abdominal Pain ([facility]), Anemia, Iron Deficiency ([facility]) Additional Instructions: Please follow-up at your [facility] office as instructed Prescriptions: Ferrous Sulfate [Feosol 325 mg Tablet] 325 mg PO TID 30 Days #100 tab Forms: Return to Work
[2020-01-04 18:56] VITALS: BP 140/70
[2020-01-05 13:23] LABS: PATH REVIEW PATHOLOGIST REVIEWED
== END 2020-01-04 18:55 | disposition home or self-care (01) ==
LOC: ER 13:38
DX: D25.9 Leiomyoma of uterus, unspecified (principal); D50.0 Iron deficiency anemia secondary to blood loss (chronic); R10.30 Lower abdominal pain, unspecified; R11.0 Nausea; Z98.51 Tubal ligation status
CPT/HCPCS: 99284; 96361; 96374; 36415; 83690; 85025; 81025; 80053; 81001; 74176; J1885; J7030

== ENCOUNTER 2020-05-01 14:27 | Observation (INO) | payer MEDICAID ==
[~2020-05-01 14:27] MED LIST: REGADENOSON INJ 0.4 MG/5 ML DISP.SYRIN IV ONE
--- NOTE | 2020-05-01 15:01 | ER Document Report ---
ED General - General Chief Complaint: Shortness Of Breath Stated Complaint: COUGH/SHORTNESS OF BREATH/HEADACHE Notes: Patient is a 40-year-old -[place] female with a history of morbid obesity and social smoking who presents to the emergency department with chief complaint of chest pain. She states the chest pain started today. She states is been constant in nature. Associated with some mild shortness of breath. She states that all of the men on her father's side of the family have had heart conditions but her father has not. She denies any other cardiac history in the family. She also admits to a mild associated headache. She states the headache started yesterday and has lingered. Today she began having chest pain. She says the pain does not radiate. Not specifically provoked or palliated by anything. Pain is been constant. Describes it as if someone is sitting on her chest like a heavy pressure. No numbness or tingling. No cough or hemoptysis. No hormone replacement therapy or control. She is status post tubal ligation 13 years ago. No lower extremity pain or swelling. No history of DVT or PE. No history of cancer. No recent travel or recent surgery. TRAVEL OUTSIDE OF THE [place] IN LAST 30 DAYS: No - Related Data Allergies/Adverse Reactions: No Known Allergies Allergy (Verified 01/04/20 14:43) Past Medical History - Social History Smoking Status: Current Some Day Smoker Family History: CAD Renal/ Medical History: Denies: Hx Peritoneal Dialysis Psychiatric Medical History: Reports: Hx Depression - and anxiety Past Surgical History: Reports: Hx Tonsillectomy, Hx Tubal Ligation - Immunizations Hx Diphtheria, Pertussis, Tetanus Vaccination: Yes Review of Systems - Review of Systems Cardiovascular: Chest pain Respiratory: Short of breath Neurological/Psychological: Headaches -: Yes All other systems reviewed and negative Physical Exam - Vital signs Vitals: Temp Pulse Resp BP Pulse Ox 98.9 F 80 16 115/86 H 100 05/01/20 14:35 05/01/20 14:35 05/01/20 14:35 05/01/20 14:35 05/01/20 14:35 - General General appearance: Appears well, Alert In distress: None - HEENT Head: Normocephalic, Atraumatic Eyes: Normal Conjunctiva: Normal Extraocular movements intact: Yes Pupils: PERRL Ears: Normal External canal: Normal Tympanic membrane: Normal Nasal: Normal Mucous membranes: Normal Pharynx: Normal Neck: Normal - Respiratory Respiratory status: No respiratory distress Chest status: Nontender Breath sounds: Normal Chest palpation: Normal - Cardiovascular Rhythm: Regular Heart sounds: Normal auscultation - Abdominal Inspection: Normal Distension: No distension Bowel sounds: Normal Tenderness: Nontender Organomegaly: No organomegaly - Extremities General upper extremity: Normal inspection, Nontender, Normal color, Normal ROM, Normal temperature General lower extremity: Normal inspection, Nontender, Normal color, Normal ROM, Normal temperature, Normal weight bearing. No: Braxton's sign - Neurological Neuro grossly intact: Yes Cognition: Normal Orientation: AAOx4 Samuel Coma Scale Eye Opening: Spontaneous Samuel Coma Scale Verbal: Oriented [place] Coma Scale Motor: Obeys Commands [place] Coma Scale Total: 15 Speech: Normal Sensory: Normal - Psychological Associated symptoms: Normal affect, Normal mood - Skin Skin Temperature: Warm Skin Moisture: Dry Skin Color: Normal Course - Re-evaluation Re-evalutation: 05/01/20 16:26 EK, sinus rhythm at 66 bpm. Normal intervals. T wave inversions noted in lead III and V1. Similar to prior EKG dated 03/15/2019. EKG interpreted by ED attending. 05/01/20 19:[address] Georges. He will admit the patient for obvious to medical floor. Patient is stable for admission at this time. - Vital Signs Vital signs: Temp Pulse Resp BP Pulse Ox 98.4 F 66 19 135/80 H 100 05/01/20 19:01 05/01/20 19:01 05/01/20 19:00 05/01/20 19:01 05/01/20 19:01 - Laboratory Result Diagrams: 05/01/20 15:11 05/01/20 15:11 Laboratory results interpreted by me: 05/01/20 05/01/20 05/01/20 15:11 15:11 15:11 Hgb 6.9 L Hct 24.1 L MCV 55 L MCH 15.6 L MCHC 28.6 L RDW 21.9 H Plt Count 149 L D-Dimer 1.26 H Sodium 136.9 L Chloride 108 H Crossmatch 05/01/20 16:20 Hgb Hct MCV MCH MCHC RDW Plt Count D-Dimer Sodium Chloride Crossmatch See Detail Discharge - Discharge Clinical Impression: Shortness of breath Anemia Qualifiers: Anemia type: unspecified type Qualified Code(s): D64.9 - Anemia, unspecified Chest pain Qualifiers: Chest pain type: unspecified Qualified Code(s): R07.9 - Chest pain, unspecified Condition: Serious Disposition: ADMITTED OBSERVATION Admitting Provider: Destini (Hospitalist) Unit Admitted: Medical Floor
--- NOTE | 2020-05-01 15:32 | RADIOLOGY REPORT (SQ) ---
EXAM DESCRIPTION: CHEST SINGLE VIEW IMAGES COMPLETED DATE/TIME: 05/01/2020 3:22 pm REASON FOR STUDY: Chest pain COMPARISON: Chest x-ray 03/15/2019, 07/09/2018. EXAM PARAMETERS: NUMBER OF VIEWS: One view. TECHNIQUE: Single frontal radiographic view of the chest acquired. RADIATION DOSE: NA LIMITATIONS: None. FINDINGS: LUNGS AND PLEURA: No consolidation, pneumothorax or pleural effusion. MEDIASTINUM AND HILAR STRUCTURES: No masses. Contour normal. HEART AND VASCULAR STRUCTURES: Heart normal in size. Normal vasculature. BONES: No acute findings. HARDWARE: None in the chest. IMPRESSION: NO ACUTE RADIOGRAPHIC FINDING IN THE CHEST. TECHNICAL DOCUMENTATION: JOB ID: [id number] 2010 [employer]- All Rights Reserved Reading location - IP/workstation name: [email or web address]
[2020-05-01 15:34] LABS: INTERNATIONAL RATION (INR) 0.96; PROTHROMBIN TIME 12.8 SEC (11.4-15.4)
[2020-05-01 15:35] LABS: PARTIAL THROMBOPLASTIN TIME 31.2 SEC (23.5-35.8)
[2020-05-01 15:37] LABS: D-DIMER 1.26 ug/mL (0.00-0.50)
[2020-05-01 15:42] LABS: HEMATOCRIT 24.1 % (36.0-47.0); MEAN CORPUSCULAR HEMOGLOBIN 15.6 pg (27.0-33.4); MEAN CORPUSCULAR HGB CONC 28.6 g/dL (32.0-36.0); MEAN CORPUSCULAR VOLUME 55 fl (80-97); PLATELET COUNT 149 10^3/uL (150-450); RED BLOOD COUNT 4.42 10^6/uL (3.72-5.28); RED CELL DISTRIBUTION WIDTH 21.9 % (11.5-14.0); WHITE BLOOD COUNT 4.3 10^3/uL (4.0-10.5)
[2020-05-01 15:48] LABS: ALBUMIN 4.2 g/dL (3.5-5.0); ALKALINE PHOSPHATASE 100 U/L (38-126); ASPARTATE AMINO TRANSFERASE 19 U/L (14-36); BILIRUBIN,TOTAL 0.4 mg/dL (0.2-1.3); BLOOD UREA NITROGEN 8 mg/dL (7-20); CHLORIDE 108 mmol/L (98-107); CREATINE KINASE 70 U/L (30-135); GLUCOSE 92 mg/dL (75-110); POTASSIUM 4.2 mmol/L (3.6-5.0); TOTAL PROTEIN 7.7 g/dL (6.3-8.2)
[2020-05-01 15:55] LABS: CARBON DIOXIDE 23 mmol/L (22-30)
[2020-05-01 15:58] LABS: ANION GAP 6 (5-19)
[2020-05-01 16:03] LABS: HEMOGLOBIN 6.9 g/dL (12.0-15.5)
[2020-05-01 16:05] LABS: ABSOLUTE LYMPHOCYTES# (MANUAL) 1.5 10^3/uL (0.5-4.7); ABSOLUTE MONOCYTES # (MANUAL) 0.4 10^3/uL (0.1-1.4); BASOPHILS % (MANUAL) 1 % (0-2); EOSINOPHILS % (MANUAL) 3 % (0-6); LYMPHOCYTES % (MANUAL) 35 % (13-45); MONOCYTES % (MANUAL) 9 % (3-13); SEGMENTED NEUTROPHILS % (MAN) 52 % (42-78); TOTAL CELLS COUNTED 100
[2020-05-01 16:06] LABS: ANISOCYTOSIS 3+; HYPOCHROMASIA 3+; OVALOCYTES 1+; PLATELET COMMENT DECREASED
[2020-05-01] MEDS ORDERED: NORMAL SALINE 250 ML IV PRN ×2 (16:08→20:20)
--- NOTE | 2020-05-01 18:35 | EKG REPORT ---
SEVERITY:- ABNORMAL ECG - SINUS RHYTHM NONSPECIFIC T ABNORMALITIES, INFERIOR LEADS : Confirmed by: Kassy Coreas 01-May-2020 18:34:24
--- NOTE | 2020-05-01 18:37 | RADIOLOGY REPORT (SQ) ---
EXAM DESCRIPTION: CTA CHEST IMAGES COMPLETED DATE/TIME: 05/01/2020 5:17 pm REASON FOR STUDY: sob, cp, elevated dimer COMPARISON: None. TECHNIQUE: CT scan of the chest performed using helical scanning technique with dynamic intravenous contrast injection. Images reviewed with lung, soft tissue and bone windows. Reconstructed coronal and sagittal MPR images reviewed. Additional 3 dimensional post-processing performed to develop Maximal Intensity Projection images (MA P). All images stored on PACS. All CT scanners at this facility use dose modulation, iterative reconstruction, and/or weight based d osing when appropriate to reduce radiation dose to as low as reasonably achievable (ALARA). [facility]: Dose Right [facility]: CareDose [facility]: Dose Right [facility]: Teradose 4D [facility]: [employer] CONTRAST TYPE AND DOSE: contrast/concentration: Isovue 350.00 mmol/ml; Total Contrast Delivered: 72. 0 ml; Total Saline Delivered: 80.0 ml Contrast bolus optimized for the pulmonary arteries. Not diagnostic for the aorta. RENAL FUNCTION: GFR > 60. RADIATION DOSE: CT Rad equipment meets quality standard of care and radiation dose reduction techniq ues were employed. CTDIvol: 24.4 - 33.1 mGy. DLP: 837 mGy-cm. . LIMITATIONS: None. FINDINGS: LUNGS AND PLEURA: No masses, infiltrates, or pneumothorax. No pleural effusions or pleura l calcifications. AORTA AND GREAT VESSELS: No aneurysm. Contrast bolus not optimized for the aorta. HEART: No pericardial effusion. No significant coronary artery calcifications. PULMONARY ARTERIES: No emboli visualized in the main pulmonary arteries or the segmental branches. HILAR AND MEDIASTINAL STRUCTURES: No identified masses or abnormal nodes. HARDWARE: None in the chest. UPPER ABDOMEN: No significant findings. Limited exam. THYROID AND OTHER SOFT TISSUES: No masses. No adenopathy. BONES: No acute or significant finding. 3D MIPS: Confirm above findings. OTHER: No other significant finding. IMPRESSION: No pulmonary embolism. No acute pulmonary disease. COMMENT: Quality ID # 436: Final reports with documentation of one or more dose reduction techniques (e.g., Automated exposure control, adjustment of the mA and/or kV according to patient size, use of iterative reconstruction technique) TECHNICAL DOCUMENTATION: JOB ID: [id number] [employer]- All Rights Reserved Reading location - IP/workstation name: [email or web address]
--- NOTE | 2020-05-01 20:04 | RADIOLOGY REPORT (SQ) ---
EXAM DESCRIPTION: CT ABD/PELVIS NO ORAL OR IV IMAGES COMPLETED DATE/TIME: 05/01/2020 3:10 pm REASON FOR STUDY: R flank, R side abd pain COMPARISON: None. TECHNIQUE: CT scan of the abdomen and pelvis performed without intravenous or oral contrast. Images reviewed with lung, soft tissue, and bone windows. Reconstructed coronal and sagittal MPR images revi ewed. All images stored on PACS. All CT scanners at this facility use dose modulation, iterative reconstruction, and/or weight based d osing when appropriate to reduce radiation dose to as low as reasonably achievable (ALARA). [facility]: Dose Right [facility]: CareDose [facility]: Dose Right [facility]: Teradose 4D [facility]: [employer] RADIATION DOSE: CT Rad equipment meets quality standard of care and radiation dose reduction techniq ues were employed. CTDIvol: 17.3 mGy. DLP: 984 mGy-cm. mGy.mGy. LIMITATIONS: None. FINDINGS: LOWER CHEST: No significant findings. No nodules or infiltrates. NON-CONTRASTED LIVER, SPLEEN, ADRENALS: Evaluation limited by lack of IV contrast. No identified sign ificant masses. PANCREAS: No masses. No peripancreatic inflammatory changes. GALLBLADDER: No identified stones by CT criteria. No inflammatory changes to suggest cholecystitis. RIGHT KIDNEY AND URETER: No suspicious masses. Assessment limited by lack of IV contrast. No signif icant calcifications. No hydronephrosis or hydroureter. LEFT KIDNEY AND URETER: No suspicious masses. Assessment limited by lack of IV contrast. No signifi cant calcifications. No hydronephrosis or hydroureter. AORTA AND RETROPERITONEUM: No aneurysm. No retroperitoneal masses or adenopathy. BOWEL AND PERITONEAL CAVITY: No obvious masses or inflammatory changes. No free fluid. APPENDIX: Normal. PELVIS, BLADDER, AND ABDOMINAL WALL:The uterus is markedly enlarged with multiple lobulated masses wi thin the uterine myometrium. Uterus measures 18 x 10.4 by 18 cm. Multiple soft tissue density masses within the myometrium measuring up to 8.6 cm. Ovaries are not definitely visualized. No adnexal mass. Calcified pelvic phleboliths. Urinary bladder has normal contour.. BONES: No significant findings. OTHER: No other significant finding. IMPRESSION: 1. Marked enlargement of the uterus with multiple uterine leiomyoma. No acute abnormalit y in the abdomen or pelvis to explain the patient's symptoms. 2. No renal or ureteral calculi. The appendix is normal.. COMMENT: Quality ID # 436: Final reports with documentation of one or more dose reduction techniques (e.g., Automated exposure control, adjustment of the mA and/or kV according to patient size, use of iterative reconstruction technique) TECHNICAL DOCUMENTATION: JOB ID: [id number] 2010 [employer]- All Rights Reserved Reading location - IP/workstation name: [email or web address]
[2020-05-01] MEDS ORDERED: MAGNESIUM HYDROXIDE SUSP 30 ML UDCUP PO PRN (20:11)
[2020-05-01] MEDS ORDERED: ONDANSETRON HCL INJ/PF 4 MG/2 ML SDV IV PRN (20:11)
[2020-05-01] MEDS ORDERED: MAG HYDROX/AL HYDROX/SIMETH SUSP 30 ML UDCUP PO PRN (20:11)
[2020-05-01] MEDS ORDERED: ACETAMINOPHEN 325 MG TABLET PO PRN ×2 (20:16→20:20)
[2020-05-01] MEDS ORDERED: NICOTINE 21 MG/24 HR PATCH.TD24 TD PRN (20:16)
[2020-05-01] MEDS ORDERED: HYDRALAZINE HCL INJ/PF 20 MG/1 ML SDV IV PRN (20:16)
[2020-05-01] MEDS ORDERED: GUAIFENESIN SYRP 200 MG/10 ML UDC PO PRN (20:16)
[2020-05-01] MEDS ORDERED: MORPHINE SULFATE 10 MG/ML INJ IV PRN ×4 (20:16→20:38)
[2020-05-01] MEDS ORDERED: LORAZEPAM INJ 2 MG/1 ML VIAL IV PRN (20:16)
[2020-05-01] MEDS ORDERED: FUROSEMIDE INJ/PF 20 MG/2 ML SDV IV PRN (20:20)
[2020-05-01] MEDS ORDERED: DIPHENHYDRAMINE HCL 25 MG CAPSULE PO PRN (20:20)
[2020-05-01 20:54] LABS: ABSOLUTE RETICS # 0.092 10^6/uL (0.028-0.122); RETICULOCYTE COUNT (AUTO) 2.09 % (0.66-2.85)
[2020-05-01 20:58] LABS: IRON(TIBC) 27.7 ug/dL (37-170)
[2020-05-01 21:34] LABS: FERRITIN 4.13 ng/mL (6.2-137.0)
[2020-05-01 21:57] LABS: CREATINE KINASE MB 0.24 ng/mL (<4.55)
--- NOTE | 2020-05-01 21:58 | PDOC H&P ---
History of Present Illness Admission Date/PCP: 05/01/2020 19:48 No local PCP Patient complains of: Chest pain History of Present Illness: MARY DEUTSCH is a 40 year old female who presented to the emergency room with acute chest pain. She admits the sudden onset of a moderately intense, constant heavy pressure in her central anterior chest without radiation. Her chest pain has been accompanied by dyspnea worsened by exertion and is associated with a mild generalized headache which began yesterday and an intermittent nonproductive cough present for the last 4 days. She denies other associated or accompanying signs and symptoms. She denies prior similar episodes. She denies identification of any additional aggravating or ameliorating factors for her chest pain. In the emergency room she was found to have an EKG and cardiac enzymes which were negative for acute myocardial ischemia or injury. A CTA of the chest was negative for pulmonary embolism. She was found to have a hem oglobin of 6.9 and admitted having "heavy periods" and a history of anemia for which she is supposed to be taking iron supplements, but she has not been taking these for quite some time. Due to her symptomatic anemia she was admitted observation status and transfusions of 2 units of packed red blood cells were initiated in the emergency room. Past Medical History Cardiac Medical History: Denies: Atrial Fibrillation, Coronary Artery Disease, DVT, Myocardial Infarction, Hyperlipidema, Hypertension, Peripheral Vascular Disease, Pulmonary Embolism, Heart Murmur Pulmonary Medical History: Denies: Asthma, Chronic Obstructive Pulmonary Disease (COPD) EENT Medical History: Denies: Cataracts, Ears - Hearing aids Neurological Medical History: Denies: Hemorrhagic CVA, Ischemic CVA, Seizures Endocrine Medical History: Reports: Obesity Denies: Diabetes Mellitus Type 1, Diabetes Mellitus Type 2, Hyperthyroidism, Hypothyroidism Renal/ Medical History: Denies: Chronic Kidney Disease, Nephrolithiasis Malignancy Medical History: Reports: None GI Medical History: Denies: Cirrhosis, Crohn's Disease, Gastroesophageal Reflux Disease, Hepatitis, Peptic Ulcer Disease, Ulcerative Colitis Musculoskeltal Medical History: Denies: Arthritis, Fibromyalgia, Gout Skin Medical History: Denies: Eczema, Psoriasis Psychiatric Medical History: Reports: Depression - and anxiety Denies: Alcohol Dependency, Substance Abuse, Tobacco Dependency Traumatic Medical History: Reports: None Hematology: Reports: Anemia - Chronic anemia from "heavy periods" Denies: Sickle Cell Disease, Bleeding Tendencies Infectious Medical History: Reports: None Past Surgical History Past Surgical History: Reports: Tonsillectomy, Tubal Ligation Social History Information Source: Patient Smoking Status: Current Some Day Smoker Electronic Cigarette use?: No Frequency of Alcohol Use: Occasional Hx Recreational Drug Use: No Drugs: None Hx Prescription Drug Abuse: No - Advance Directive Resuscitation Status: Full Code Surrogate healthcare decision maker:: Dusty Hammond Family History Family History: CAD Parental Family History Reviewed: Yes Children Family History Reviewed: No Sibling(s) Family History Reviewed.: Yes Medication/Allergy Home Medications: Cephalexin Monohydrate [Keflex 500 mg Capsule] 500 mg PO BID #14 capsule 03/16/19 Ondansetron [Zofran Odt 4 mg Tablet] 1 tab PO Q4H PRN #15 tab.rapdis 03/16/19 Doxycycline Hyclate 100 mg PO BID #14 capsule 04/12/19 Fluticasone Propionate [Flonase Nasal Cherokee 50 Mcg/Cherokee 16 gm] 2 sprays NASL Q12 #1 inhaler 04/12/19 Guaifenesin/Pseudoephedrne HCl [Mucinex D ER 1,200-120 mg Tab] 1 each PO Q12H 5 Days #10 tab.er.12h 04/12/19 Ibuprofen [Motrin 600 Mg Tablet] 600 mg PO TID #15 tablet 04/12/19 Ferrous Sulfate [Feosol 325 mg Tablet] 325 mg PO TID 30 Days #100 tab 01/04/20 Allergies/Adverse Reactions: No Known Allergies Allergy (Verified 01/04/20 14:43) Review of Systems Constitutional: PRESENT: as per HPI, headache(s). ABSENT: chills, fever(s) Eyes: ABSENT: visual disturbances, other - Eye pain Ears: ABSENT: hearing changes, other - Ear pain Nose, Mouth, and Throat: PRESENT: as per HPI, headache(s). ABSENT: sore throat Cardiovascular: PRESENT: as per HPI, chest pain, dyspnea on exertion. ABSENT: edema, orthropnea, palpitations Respiratory: PRESENT: as per HPI, cough, dyspnea. ABSENT: sputum Gastrointestinal: ABSENT: abdominal pain, constipation, diarrhea, nausea, vomiting Genitourinary: ABSENT: dysuria, hematuria Musculoskeletal: ABSENT: back pain, joint swelling Integumentary: ABSENT: pruritus, rash Neurological: ABSENT: confusion, convulsions, focal weakness, memory loss, syncope Psychiatric: ABSENT: anxiety, depression Endocrine: ABSENT: cold intolerance, heat intolerance, polydipsia, polyphagia, polyuria Hematologic/Lymphatic: ABSENT: easy bleeding, easy bruising Allergic/Immunologic: ABSENT: seasonal rhinorrhea Physical Exam Vital Signs: Temp Pulse Resp BP Pulse Ox 98.4 F 66 19 135/80 H 100 05/01/20 19:01 05/01/20 19:01 05/01/20 19:00 05/01/20 19:01 05/01/20 19:01 Intake & Output 04/29/20 04/30/20 05/01/20 23:59 23:59 23:59 Intake Total 0 Balance 0 Weight 119.295 kg General appearance: PRESENT: no acute distress, cooperative, morbidly obese Head exam: PRESENT: atraumatic, normocephalic Eye exam: PRESENT: conjunctiva pale. ABSENT: conjunctival injection, scleral icterus Ear exam: PRESENT: normal external ear exam. ABSENT: bleeding, drainage Mouth exam: PRESENT: dry mucosa, neck supple Neck exam: ABSENT: thyromegaly, tracheal deviation Respiratory exam: PRESENT: clear to auscultation dave, symmetrical, unlabored Cardiovascular exam: PRESENT: RRR. ABSENT: clicks, gallop, rubs Pulses: PRESENT: normal radial pulses, normal dorsalis pedis pul Vascular exam: PRESENT: normal capillary refill. ABSENT: pallor GI/Abdominal exam: PRESENT: normal bowel sounds, soft Rectal exam: PRESENT: deferred Extremities exam: ABSENT: joint swelling, pedal edema Musculoskeletal exam: ABSENT: deformity, dislocation Neurological exam: PRESENT: alert, oriented to person, oriented to place, or iented to time, oriented to situation, CN II-XII grossly intact. ABSENT: motor sensory deficit Psychiatric exam: PRESENT: appropriate affect, normal mood Skin exam: PRESENT: dry, intact, warm. ABSENT: jaundice, rash, urticaria Results Laboratory Results: 05/01/20 15:11 05/01/20 15:11 05/01/20 05/01/20 05/01/20 15:11 15:11 15:11 WBC 4.3 RBC 4.42 Hgb 6.9 L Hct 24.1 L MCV 55 L MCH 15.6 L MCHC 28.6 L RDW 21.9 H Plt Count 149 L Seg Neutrophils % Not Reportable Sodium 136.9 L Potassium 4.2 Chloride 108 H Carbon Dioxide 23 Anion Gap 6 BUN 8 Creatinine 0.71 Est GFR ( Amer) > 60 Glucose 92 Calcium 9.0 Total Bilirubin 0.4 AST 19 Alkaline Phosphatase 100 Total Protein 7.7 Albumin 4.2 Serum HCG, Qual NEGATIVE Blood Type Antibody Screen 05/01/20 16:20 WBC RBC Hgb Hct MCV MCH MCHC RDW Plt Count Seg Neutrophils % Sodium Potassium Chloride Carbon Dioxide Anion Gap BUN Creatinine Est GFR ( Amer) Glucose Calcium Total Bilirubin AST Alkaline Phosphatase Total Protein Albumin Serum HCG, Qual Blood Type O POSITIVE Antibody Screen NEGATIVE 05/01/20 05/01/20 15:11 15:11 Creatine Kinase 70 Troponin I < 0.012 Impressions: Chest X-Ray 05/01/20 14:58 IMPRESSION: NO ACUTE RADIOGRAPHIC FINDING IN THE CHEST. Chest/Abdomen CTA 05/01/20 16:25 IMPRESSION: No pulmonary embolism. No acute pulmonary disease. Assessment and Plan - Diagnosis (1) Chest pain Qualifiers: Chest pain type: precordial pain Qualified Code(s): R07.2 - Precordial pain Is this a current diagnosis for this admission?: Yes (2) Symptomatic anemia Is this a current diagnosis for this admission?: Yes (3) Hypochromic microcytic anemia Is this a current diagnosis for this admission?: Yes (4) Iron deficiency anemia due to chronic blood loss Is this a current diagnosis for this admission?: Yes (5) Morbid obesity with BMI of 40.0-44.9, adult Is this a current diagnosis for this admission?: Yes (6) Tobacco use disorder, mild, abuse Is this a current diagnosis for this admission?: Yes - Plan Summary Summary: Patient will be admitted observation status on the medical floor with telemetry where she will receive routine supportive and symptomatic cares. A cardiology consultation with Dr. Chacon will be obtained and a Cardiolite stress test will be ordered. The patient will receive 2 units of packed red blood cells by transfusion. Serial cardiac enzymes will be obtained. She will use morphine sulfate 2 to 4 mg IV every 2 hours as needed for pain. She will receive Ativan 1 mg IV every 4 hours as needed for anxiety or restlessness. She will be placed on a cardiac diet. CBCs, metabolic profiles, magnesium levels and additional laboratory and/or radiographic evaluations will be obtained as needed. Smoking cessation is advised and counseled briefly at the bedside. A nicotine repl acement patch is available for the patient's use if desired. - Time Time Spent with patient: 15-24 minutes Smoking Cessation Education: 3 to 10 minutes Medications reviewed and adjusted accordingly: Yes Anticipated discharge: Home Within: within 48 hours - Inpatient Certification Based on my medical assessment, after consideration of the patient's comorbidities, presenting symptoms, or acuity I expect that the services needed warrant INPATIENT care.: No I certify that my determination is in accordance with my understanding of Medicare's requirements for reasonable and necessary INPATIENT services [42 CFR 412.3e].: No Medical Necessity: Need For Continuous Telemetry Monitoring, Need for Pain Control
[2020-05-01 22:08] LABS: TROPONIN I < 0.012 ng/mL
[2020-05-01] MEDS: HEPARIN SOD (PORCINE) 5,000 UNIT/ML 1 ML VIAL SUBCUT SCH (22:51)
[2020-05-01] MEDS: FAMOTIDINE 20 MG TABLET PO SCH (22:51)
[2020-05-02 04:02] LABS: CREATINE KINASE MB < 0.22 ng/mL (<4.55); TROPONIN I < 0.012 ng/mL
[2020-05-02] MEDS: HEPARIN SOD (PORCINE) 5,000 UNIT/ML 1 ML VIAL SUBCUT SCH ×2 (05:31→13:19)
[2020-05-02 05:58] LABS: HEMATOCRIT 28.3 % (36.0-47.0); HEMOGLOBIN 8.7 g/dL (12.0-15.5); MEAN CORPUSCULAR HEMOGLOBIN 18.4 pg (27.0-33.4); MEAN CORPUSCULAR HGB CONC 30.6 g/dL (32.0-36.0); RED BLOOD COUNT 4.71 10^6/uL (3.72-5.28); RED CELL DISTRIBUTION WIDTH 30.2 % (11.5-14.0); WHITE BLOOD COUNT 5.2 10^3/uL (4.0-10.5)
[2020-05-02 06:19] LABS: ANION GAP 7 (5-19); BLOOD UREA NITROGEN 8 mg/dL (7-20); CALCIUM 8.8 mg/dL (8.4-10.2); CARBON DIOXIDE 23 mmol/L (22-30); CHLORIDE 107 mmol/L (98-107); CHOLESTEROL 160.18 mg/dL (0-200); GLUCOSE 88 mg/dL (75-110); POTASSIUM 3.9 mmol/L (3.6-5.0); TRIGLYCERIDES 105 mg/dL (<150)
[2020-05-02 06:30] LABS: DIRECT LDL 87 mg/dL (<100)
[2020-05-02 06:45] LABS: MEAN CORPUSCULAR VOLUME 60 fl (80-97)
[2020-05-02 06:46] LABS: PLATELET COUNT 148 10^3/uL (150-450)
[2020-05-02 06:47] LABS: ABSOLUTE LYMPHOCYTES# (MANUAL) 1.1 10^3/uL (0.5-4.7); ABSOLUTE MONOCYTES # (MANUAL) 0.4 10^3/uL (0.1-1.4); BASOPHILS % (MANUAL) 0 % (0-2); EOSINOPHILS % (MANUAL) 4 % (0-6); LYMPHOCYTES % (MANUAL) 22 % (13-45); MONOCYTES % (MANUAL) 7 % (3-13); SEGMENTED NEUTROPHILS % (MAN) 67 % (42-78); TOTAL CELLS COUNTED 100
[2020-05-02 06:48] LABS: ANISOCYTOSIS 4+; HYPOCHROMASIA 1+; OVALOCYTES 1+; POIKILOCYTOSIS 1+; POLYCHROMASIA 1+; TEAR DROP CELLS 1+
[2020-05-02 06:49] LABS: PLATELET CLUMPS PRESENT; PLATELET COMMENT DECREASED; PLATELET LARGE PRESENT; SCHISTOCYTES SLIGHT
[2020-05-02 09:25] LABS: CREATINE KINASE MB 0.37 ng/mL (<4.55)
[2020-05-02 09:29] LABS: TROPONIN I < 0.012 ng/mL
[2020-05-02] MEDS ORDERED: FERROUS SULFATE 325 MG TABLET PO SCH (10:00)
--- NOTE | 2020-05-02 10:39 | PDOC CONSULTATION ---
Consultation Consult Date: 05/02/20 Provider Consulted: RODDY CASTILLO History of Present Illness Admission Date/PCP: 05/01/20 20:24 ANITHA BHAT MD Patient complains of: Chest pain History of Present Illness: MARY DEUTSCH is a 40 year old female No significant prior medical history who presented with complaints of substernal chest pain of relatively acute onset yesterday. Patient reported acute onset chest pain in the central chest with more of a right-sided localization. She has had previous episodes of chest pain similar to this but these have been attributed to panic attacks. There is strong family history of coronary artery disease in the father and also in an uncle on the paternal side. Patient is of does not smoke cigarettes. She was found to be anemic and this was corrected. She reports heavy menstrual cycles. Her EKG is nondiagnostic for myocardial ischemia and the cardiac biomarkers are negative. Strong family history of coronary artery disease Past Medical History Cardiac Medical History: Denies: Atrial Fibrillation, Coronary Artery Disease, DVT, Myocardial Infarction, Hyperlipidema, Hypertension, Peripheral Vascular Disease, Pulmonary Embolism, Heart Murmur Pulmonary Medical History: Denies: Asthma, Chronic Obstructive Pulmonary Disease (COPD) EENT Medical History: Denies: Cataracts, Ears - Hearing aids Neurological Medical History: Denies: Hemorrhagic CVA, Ischemic CVA, Seizures Endocrine Medical History: Reports: Obesity Denies: Diabetes Mellitus Type 1, Diabetes Mellitus Type 2, Hyperthyroidism, Hypothyroidism Renal/ Medical History: Denies: Chronic Kidney Disease, Nephrolithiasis Malignancy Medical History: Reports: None GI Medical History: Denies: Cirrhosis, Crohn's Disease, Gastroesophageal Reflux Disease, Hepati tis, Peptic Ulcer Disease, Ulcerative Colitis Musculoskeltal Medical History: Denies: Arthritis, Fibromyalgia, Gout Skin Medical History: Denies: Eczema, Psoriasis Psychiatric Medical History: Reports: Depression - and anxiety Denies: Alcohol Dependency, Substance Abuse, Tobacco Dependency Traumatic Medical History: Reports: None Hematology: Reports: Anemia - Chronic anemia from "heavy periods" Denies: Sickle Cell Disease, Bleeding Tendencies Infectious Medical History: Reports: None Past Surgical History Past Surgical History: Reports: Tonsillectomy, Tubal Ligation Social History Smoking Status: Current Some Day Smoker Electronic Cigarette use?: No Frequency of Alcohol Use: Occasional Hx Recreational Drug Use: No Drugs: None Hx Prescription Drug Abuse: No - Advance Directive Resuscitation Status: Full Code Family History Family History: CAD Parental Family History Reviewed: Yes - Family history of coronary artery disease in the father and paternal uncle Children Family History Reviewed: NA Sibling(s) Family History Reviewed.: NA Medication/Allergy Home Medications: No Home Medications 05/02/20 Allergies/Adverse Reactions: No Known Allergies Allergy (Verified 05/02/20 08:20) Review of Systems Eyes: PRESENT: as per HPI Cardiovascular: PRESENT: as per HPI, chest pain, dyspnea on exertion Genitourinary: PRESENT: other - Heavy.'s Hematologic/Lymphatic: PRESENT: as per HPI Physical Exam Vital Signs: Temp Pulse Resp BP Pulse Ox 98.6 F 70 16 119/69 100 05/02/20 08:01 05/02/20 08:01 05/02/20 08:01 05/02/20 08:01 05/02/20 08:01 Intake & Output 05/01/20 05/02/20 05/03/20 06:59 06:59 06:59 Intake Total 740 615 Balance 740 615 Weight 121.2 kg Results Laboratory Results: 05/02/20 05:06 05/02/20 05:06 05/01/20 05/01/20 05/01/20 15:11 15:11 15:11 WBC 4.3 RBC 4.42 Hgb 6.9 L Hct 24.1 L MCV 55 L MCH 15.6 L MCHC 28.6 L RDW 21.9 H Plt Count 149 L Seg Neutrophils % Not Reportable Retic Count (auto) Sodium 136.9 L Potassium 4.2 Chloride 108 H Carbon Dioxide 23 Anion Gap 6 BUN 8 Creatinine 0.71 Est GFR ( Amer) > 60 Glucose 92 Calcium 9.0 Magnesium Iron TIBC % Saturation Transferrin Ferritin Total Bilirubin 0.4 AST 19 Alkaline Phosphatase 100 Total Protein 7.7 Albumin 4.2 Triglycerides Cholesterol LDL Cholesterol Direct VLDL Cholesterol HDL Cholesterol Vitamin B12 Folate TSH Serum HCG, Qual NEGATIVE Blood Type Antibody Screen 05/01/20 05/01/20 05/01/20 15:11 15:11 15:11 WBC RBC Hgb Hct MCV MCH MCHC RDW Plt Count Seg Neutrophils % Retic Count (auto) 2.09 Sodium Potassium Chloride Carbon Dioxide Anion Gap BUN Creatinine Est GFR ( Amer) Glucose Calcium Magnesium Iron 27.7 L TIBC 511 H % Saturation 5 Transferrin 427.60 H Ferritin 4.13 L Total Bilirubin AST Alkaline Phosphatase Total Protein Albumin Triglycerides Cholesterol LDL Cholesterol Direct VLDL Cholesterol HDL Cholesterol Vitamin B12 329.0 Folate 10.40 TSH Serum HCG, Qual Blood Type Antibody Screen 05/01/20 05/02/20 05/02/20 16:20 05:06 05:06 WBC 5.2 RBC 4.71 Hgb 8.7 L Hct 28.3 L MCV 60 L D MCH 18.4 L MCHC 30.6 L RDW 30.2 H Plt Count 148 L Seg Neutrophils % Not Reportable Retic Count (auto) Sodium 137.2 Potassium 3.9 Chloride 107 Carbon Dioxide 23 Anion Gap 7 BUN 8 Creatinine 0.77 Est GFR ( Amer) > 60 Glucose 88 Calcium 8.8 Magnesium 2.0 Iron TIBC % Saturation Transferrin Ferritin Total Bilirubin AST Alkaline Phosphatase Total Protein Albumin Triglycerides 105 Cholesterol 160.18 LDL Cholesterol Direct 87 VLDL Cholesterol 21.0 HDL Cholesterol 40 Vitamin B12 Folate TSH Serum HCG, Qual Blood Type O POSITIVE Antibody Screen NEGATIVE 05/02/20 05:06 WBC RBC Hgb Hct MCV MCH MCHC RDW Plt Count Seg Neutrophils % Retic Count (auto) Sodium Potassium Chloride Carbon Dioxide Anion Gap BUN Creatinine Est GFR ( Amer) Glucose Calcium Magnesium Iron TIBC % Saturation Transferrin Ferritin Total Bilirubin AST Alkaline Phosphatase Total Protein Albumin Triglycerides Cholesterol LDL Cholesterol Direct VLDL Cholesterol HDL Cholesterol Vitamin B12 Folate TSH 1.75 Serum HCG, Qual Blood Type Antibody Screen 05/01/20 05/01/20 05/01/20 15:11 15:11 15:11 Creatine Kinase 70 Cancelled CK-MB (CK-2) Troponin I < 0.012 05/01/20 05/01/20 05/02/20 21:07 21:07 02:57 Creatine Kinase 74 61 CK-MB (CK-2) 0.24 Troponin I < 0.012 05/02/20 05/02/20 05/02/20 02:57 08:39 08:39 Creatine Kinase 62 CK-MB (CK-2) < 0.22 0.37 Troponin I < 0.012 < 0.012 EKG Comments: CT scan of the abdomen pelvis 05/01/2020 Market enlargement of the uterus with multiple uterine leiomyoma. Lower chest no significant findings CT scan chest 05/01/2020 No pulmonary embolism no acute pulmonary disease Twelve-lead EKG. 05/01/2020. Independently reviewed by me. Sinus rhythm, 66 bpm, nonspecific T wave abnormalities, QTC is 445 ms. Normal AV conduction Laboratory data Hemoglobin 6.9 corrected to 8.7 Cardiac troponin is negative x4 Impressions: Abdomen/Pelvis CT 05/01/20 00:00 IMPRESSION: 1. Marked enlargement of the uterus with multiple uterine leiomyoma. No acute abnormality in the abdomen or pelvis to explain the patient's symptoms. 2. No renal or ureteral calculi. The appendix is normal.. Chest X-Ray 05/01/20 14:58 IMPRESSION: NO ACUTE RADIOGRAPHIC FINDING IN THE CHEST. Chest/Abdomen CTA 05/01/20 16:25 IMPRESSION: No pulmonary embolism. No acute pulmonary disease. Assessment & Plan - Diagnosis (1) Anemia Qualifiers: Anemia type: unspecified type Qualified Code(s): D64.9 - Anemia, unspecified Is this a current diagnosis for this admission?: Yes Plan: Uterine leiomyomas Heavy menstrual cycles Anemia has been temporarily corrected. She needs close follow-up and outpatient work-up and management of anemia. It is possible that her chest pain may be related to underlying anemia and demands of a hyperdynamic circulation. However strong family history of coronary artery disease as mentioned. (2) Chest pain Qualifiers: Chest pain type: precordial pain Qualified Code(s): R07.2 - Precordial pain Is this a current diagnosis for this admission?: Yes Plan: Negative cardiac biomarkers EKG is nondiagnostic for myocardial ischemia Anemia could have been responsible for reported chest pain although there is significant family history coronary artery disease Will follow through with stress testing as was ordered
[2020-05-02] MEDS: DOCUSATE SODIUM 100 MG CAPSULE PO SCH ×2 (10:58→17:46)
[2020-05-02] MEDS: FAMOTIDINE 20 MG TABLET PO SCH (10:58)
--- NOTE | 2020-05-02 14:25 | DRAGON STRESS TEST REPORT ---
Pharmacological nuclear stress test Date: May 02, 2020 Referring physician: Dr. Ulysses Georges Performing physician: Kwan Chacon MD Indication: Chest pain Clinical history 40 year-old with medical history significant for anemia with chest pain. There is strong family history of coronary artery disease. Patient has had similar episodes previously that have been attributed to anxiety. Dr. Georges requested stress testing. Procedure The patient presented to the stress lab. Initially rest images were obtained according to standard protocol after the injection of 15.28 millicurie technetium 99m sestamibi. Subsequently the patient underwent pharmacological stress utilizing 0.4 mg of regadenoson intravenously. The patient's EKG and vital signs were monitored throughout the procedure. Subsequently patient was injected with 45.1 millicuries of technetium 99m sestamibi. After a period of rest, stress images were obtained according to standard protocol. Attenuation correction was available for the study. EKG showed sinus rhythm at 85 beats per minute. The patient's stress EKG did not show any evidence for myocardial ischemia. There were no arrhythmias observed. Raw as well as processed rest and stress images were reviewed. There was mild to moderate gut uptake which did not interfere with the study. The rest and stress images show uniform uptake of radioactive isotope without any fixed or reversible defects to suggest myocardial ischemia or myocardial infarction. There is normal contractility post-rest. The calculated ejection fraction is 52%. The TID ratio is 1.10. Conclusion The stress EKG is negative for myocardial ischemia There is no scintigraphic evidence of myocardial infarction or ischemia provoked by pharmacological stress. There is normal contractility post-stress. The gated left ventricular ejection fraction is 52 %. MTDD
[2020-05-02] MEDS ORDERED: IRON SUCROSE COMPLEX INJ/PF 100 MG/5 ML SDV IV ONE (14:51)
--- NOTE | 2020-05-02 15:53 | PDOC DISCHARGE SUMMARY ---
Impression - Admit/DC Date/PCP Admission Date/Primary Care Provider: 05/01/20 20:24 ANITHA BHAT MD Discharge Date: 05/02/20 - Discharge Diagnosis (1) Chest pain Is this a current diagnosis for this admission?: Yes (2) Hypochromic microcytic anemia Is this a current diagnosis for this admission?: Yes (3) Iron deficiency anemia due to chronic blood loss Is this a current diagnosis for this admission?: Yes (4) Morbid obesity with BMI of 40.0-44.9, adult Is this a current diagnosis for this admission?: Yes (5) Symptomatic anemia Is this a current diagnosis for this admission?: Yes - Assessment Summary: Patient will be admitted observation status on the medical floor with telemetry where she will receive routine supportive and symptomatic cares. A cardiology consultation with Dr. Chacon will be obtained and a Cardiolite stress test will be ordered. The patient will receive 2 units of packed red blood cells by transfusion. Serial cardiac enzymes will be obtained. She will use morphine sulfate 2 to 4 mg IV every 2 hours as needed for pain. She will receive Ativan 1 mg IV every 4 hours as needed for anxiety or restlessness. She will be placed on a cardiac diet. CBCs, metabolic profiles, magnesium levels and additional laboratory and/or radiographic evaluations will be obtained as needed. Smoking cessation is advised and counseled briefly at the bedside. A nicotine replaceme nt patch is available for the patient's use if desired. - Additional Information Resuscitation Status: Full Code Discharge Diet: As Tolerated Discharge Activity: Activity As Tolerated Referrals: ANITHA BHAT MD [Primary Care Provider] - Prescriptions: Docusate Sodium [Colace 100 mg Capsule] 100 mg PO BID #30 capsule Ferrous Sulfate [Ferrous Sulfate Liquid 300 mg/5 ml Udcup] 300 mg PO DAILY #30 ml Home Medications: Docusate Sodium [Colace 100 mg Capsule] 100 mg PO BID #30 capsule 05/02/20 Ferrous Sulfate [Ferrous Sulfate Liquid 300 mg/5 ml Udcup] 300 mg PO DAILY #30 ml 05/02/20 Nicotine [Nicoderm 21 mg/24 Hr Transderm Patch] 1 each TD DAILY #30 patch.td24 05/02/20 History of Present Illiness History of Present Illness: Per admitting physician: "MARY DEUTSCH is a 40 year old female who presented to the emergency room with acute chest pain. She admits the sudden onset of a moderately intense, constant heavy pressure in her central anterior chest without radiation. Her chest pain has been accompanied by dyspnea worsened by exertion and is associated with a mild generalized headache which began yesterday and an intermittent nonproductive cough present for the last 4 days. She denies other associated or accompanying signs and symptoms. She denies prior similar episodes. She denies identification of any additional aggravating or ameliorating factors for her ch est pain. In the emergency room she was found to have an EKG and cardiac enzymes which were negative for acute myocardial ischemia or injury. A CTA of the chest was negative for pulmonary embolism. She was found to have a hemoglobin of 6.9 and admitted having "heavy periods" and a history of anemia for which she is supposed to be taking iron supplements, but she has not been taking these for quite some time. Due to her symptomatic anemia she was admitted observation status and transfusions of 2 units of packed red blood cells were initiated in the emergency room." Hospital Course Hospital Course: Patient admitted with chest pain, substernal reproducible atypical. Nuclear stress test was negative and showed normal EF. Cardiology was consulted and followed patient while here. CT scan of abdomen/pelvis demonstrated multiple large uterine fibroids which are likely the source of her dysfunctional uterine bleeding. Patient was transfused 2 units PRBC with appropriate significant rise in her hemoglobin. She has no signs of bleeding during the admission, she states that she is not menstruating at all and has no rectal bleeding currently. Patient was instructed to follow-up with gynecology after her last admission for symptomatic anemia however she reports they refused to see her because she was menstruating and and when she was rescheduled the clinic had temporarily closed due to COVID-19 pandemic. I asked patient to call this clinic again and try to reschedule as soon as possible. If they are unwilling or unable to see the patient, I recommended she follow-up with a tamale machine feeder in [place] or [place]. Patient is in agreement with this plan. She will return to the ED with any dysfunctional uterine bleeding with symptoms. Physical Exam Vital Signs: Temp Pulse Resp BP Pulse Ox 97.8 F 74 16 122/63 99 05/02/20 11:49 05/02/20 14:00 05/02/20 11:49 05/02/20 11:49 05/02/20 11:49 Intake & Output 05/01/20 05/02/20 05/03/20 06:59 06:59 06:59 Intake Total 740 615 Balance 740 615 Weight 121.2 kg General appearance: PRESENT: no acute distress, morbidly obese Head exam: PRESENT: atraumatic, normocephalic Eye exam: PRESENT: conjunctiva pink Mouth exam: PRESENT: moist Respiratory exam: PRESENT: clear to auscultation dave. ABSENT: rales, rhonchi, wheezes Cardiovascular exam: PRESENT: RRR. ABSENT: diastolic murmur, rubs, systolic murmur GI/Abdominal exam: PRESENT: normal bowel sounds, soft. ABSENT: distended, guarding, mass, organolmegaly, rebound, tenderness Rectal exam: PRESENT: deferred Extremities exam: ABSENT: pedal edema Neurological exam: PRESENT: alert, awake, oriented to person, oriented to place, oriented to time, oriented to situation Psychiatric exam: PRESENT: appropriate affect Skin exam: PRESENT: dry, intact, warm Results Laboratory Results: WBC 5.2 10^3/uL (4.0-10.5) 05/02/20 05:06 RBC 4.71 10^6/uL (3.72-5.28) 05/02/20 05:06 Hgb 8.7 g/dL (12.0-15.5) L 05/02/20 05:06 Hct 28.3 % (36.0-47.0) L 05/02/20 05:06 MCV 60 fl (80-97) L D 05/02/20 05:06 MCH 18.4 pg (27.0-33.4) L 05/02/20 05:06 MCHC 30.6 g/dL (32.0-36.0) L 05/02/20 05:06 RDW 30.2 % (11.5-14.0) H 05/02/20 05:06 Plt Count 148 10^3/uL (150-450) L 05/02/20 05:06 Lymph % (Auto) Not Reportable 05/02/20 05:06 [place] % (Auto) Not Reportable 05/02/20 05:06 Eos % (Auto) Not Reportable 05/02/20 05:06 Baso % (Auto) Not Reportable 05/02/20 05:06 Reticulocyte # 0.092 10^6/uL (0.028-0.122) 05/01/20 15:11 Absolute Neuts (auto) Not Reportable 05/02/20 05:06 Absolute Lymphs (auto) Not Reportable 05/02/20 05:06 Absolute Monos (auto) Not Reportable 05/02/20 05:06 Absolute Eos (auto) Not Reportable 05/02/20 05:06 Absolute Basos (auto) Not Reportable 05/02/20 05:06 Total Counted 100 05/02/20 05:06 Seg Neutrophils % Not Reportable 05/02/20 05:06 Seg Neuts % (Manual) 67 % (42-78) 05/02/20 05:06 Lymphocytes % (Manual) 22 % (13-45) 05/02/20 05:06 Monocytes % (Manual) 7 % (3-13) 05/02/20 05:06 Eosinophils % (Manual) 4 % (0-6) 05/02/20 05:06 Basophils % (Manual) 0 % (0-2) 05/02/20 05:06 Abs Neuts (Manual) 3.5 10^3/uL (1.7-8.2) 05/02/20 05:06 Abs Lymphs (Manual) 1.1 10^3/uL (0.5-4.7) 05/02/20 05:06 Abs Monocytes (Manual) 0.4 10^3/uL (0.1-1.4) 05/02/20 05:06 Absolute Eos (Manual) 0.2 10^3/uL (0.0-0.6) 05/02/20 05:06 Abs Basophils (Manual) 0.0 10^3/uL (0.0-0.2) 05/02/20 05:06 Clumped Platelets PRESENT 05/02/20 05:06 Large Platelets PRESENT 05/02/20 05:06 Platelet Comment DECREASED 05/02/20 05:06 Polychromasia 1+ 05/02/20 05:06 Hypochromasia 1+ 05/02/20 05:06 Poikilocytosis 1+ 05/02/20 05:06 Anisocytosis 4+ 05/02/20 05:06 Microcytosis 3+ 05/02/20 05:06 Tear Drop Cells 1+ 05/02/20 05:06 Ovalocytes 1+ 05/02/20 05:06 Schistocytes SLIGHT 05/02/20 05:06 Retic Count (auto) 2.09 % (0.66-2.85) 05/01/20 15:11 PT 12.8 SEC (11.4-15.4) 05/01/20 15:11 INR 0.96 05/01/20 15:11 APTT 31.2 SEC (23.5-35.8) 05/01/20 15:11 D-Dimer 1.26 ug/mL (0.00-0.50) H 05/01/20 15:11 Sodium 137.2 mmol/L (137-145) 05/02/20 05:06 Potassium 3.9 mmol/L (3.6-5.0) 05/02/20 05:06 Chloride 107 mmol/L (98-107) 05/02/20 05:06 Carbon Dioxide 23 mmol/L (22-30) 05/02/20 05:06 Anion Gap 7 (5-19) 05/02/20 05:06 BUN 8 mg/dL (7-20) 05/02/20 05:06 Creatinine 0.77 mg/dL (0.52-1.25) 05/02/20 05:06 Est GFR ( Amer) > 60 (>60) 05/02/20 05:06 Est GFR (MDRD) Non-Af > 60 (>60) 05/02/20 05:06 Glucose 88 mg/dL (75-110) 05/02/20 05:06 Calcium 8.8 mg/dL (8.4-10.2) 05/02/20 05:06 Magnesium 2.0 mg/dL (1.6-2.3) 05/02/20 05:06 Iron 27.7 ug/dL (37-170) L 05/01/20 15:11 TIBC 511 ug/dL (250-450) H 05/01/20 15:11 % Saturation 5 % 05/01/20 15:11 Transferrin 427.60 mg/dL (206.00-381.00) H 05/01/20 15:11 Ferritin 4.13 ng/mL (6.2-137.0) L 05/01/20 15:11 Total Bilirubin 0.4 mg/dL (0.2-1.3) 05/01/20 15:11 Direct Bilirubin 0.0 mg/dL (0.0-0.4) 05/01/20 15:11 Neonat Total Bilirubin Not Reportable 05/01/20 15:11 Neonat Direct Bilirubin Not Reportable 05/01/20 15:11 Neonat Indirect Bili Not Reportable 05/01/20 15:11 AST 19 U/L (14-36) 05/01/20 15:11 ALT 11 U/L (<35) 05/01/20 15:11 Alkaline Phosphatase 100 U/L (38-126) 05/01/20 15:11 Creatine Kinase 62 U/L (30-135) 05/02/20 08:39 CK-MB (CK-2) 0.37 ng/mL (<4.55) 05/02/20 08:39 Troponin I < 0.012 ng/mL 05/02/20 08:39 Total Protein 7.7 g/dL (6.3-8.2) 05/01/20 15:11 Albumin 4.2 g/dL (3.5-5.0) 05/01/20 15:11 Triglycerides 105 mg/dL (<150) 05/02/20 05:06 Cholesterol 160.18 mg/dL (0-200) 05/02/20 05:06 LDL Cholesterol Direct 87 mg/dL (<100) 05/02/20 05:06 VLDL Cholesterol 21.0 mg/dL (10-31) 05/02/20 05:06 HDL Cholesterol 40 mg/dL (>40) 05/02/20 05:06 Vitamin B12 329.0 pg/mL (239-931) 05/01/20 15:11 Folate 10.40 ng/mL (>2.76) 05/01/20 15:11 TSH 1.75 uIU/mL (0.47-4.68) 05/02/20 05:06 Serum HCG, Qual NEGATIVE (NEGATIVE) 05/01/20 15:11 POC Stool Occult Blood NEGATIVE (NEGATIVE) 05/01/20 16:20 Blood Type O POSITIVE 05/01/20 16:20 Antibody Screen NEGATIVE 05/01/20 16:20 Crossmatch See Detail 05/01/20 16:20 05/01/20 05/01/20 05/02/20 15:11 21:07 02:57 CK-MB (CK-2) 0.24 < 0.22 Troponin I < 0.012 < 0.012 < 0.012 05/02/20 08:39 CK-MB (CK-2) 0.37 Troponin I < 0.012 Impressions: Abdomen/Pelvis CT 05/01/20 00:00 IMPRESSION: 1. Marked enlargement of the uterus with multiple uterine leiomyoma. No acute abnormality in the abdomen or pelvis to explain the patient's symptoms. 2. No renal or ureteral calculi. The appendix is normal.. Chest X-Ray 05/01/20 14:58 IMPRESSION: NO ACUTE RADIOGRAPHIC FINDING IN THE CHEST. Chest/Abdomen CTA 05/01/20 16:25 IMPRESSION: No pulmonary embolism. No acute pulmonary disease. Plan Time Spent: Greater than 30 Minutes Stroke Is this a Stroke Patient?: No Acute Heart Failure - Is this a Heart Failure Patient?: No
[2020-05-02] MEDS ORDERED: IRON SUCROSE COMPLEX 400 MG in NORMAL SALINE 250 ML IV ONE (16:30)
[2020-05-02 19:40] VITALS: BP 133/74
== END 2020-05-02 19:38 | disposition home or self-care (01) ==
LOC: ER 14:27 → EH 20:24 → 4N 21:48
PROVIDERS: ADMIT Emergency Medicine; ATTEND Internal Medicine
DX: R07.89 Other chest pain (principal); D50.0 Iron deficiency anemia secondary to blood loss (chronic); E66.01 Morbid (severe) obesity due to excess calories; Z68.41 Body mass index [BMI] 40.0-44.9, adult; R05 Cough; R78.79 Finding of abnormal level of heavy metals in blood; D25.9 Leiomyoma of uterus, unspecified; N93.8 Other specified abnormal uterine and vaginal bleeding; R07.2 Precordial pain; R06.00 Dyspnea, unspecified; F17.200 Nicotine dependence, unspecified, uncomplicated; Z91.14 Patient's other noncompliance with medication regimen; Z82.49 Family history of ischemic heart disease and other diseases of the circulatory system; Z98.51 Tubal ligation status
CPT/HCPCS: 93005; 99285; 86900; 86901; 36415 ×2; 82553 ×2; 36430; 86850; 82607; 82550 ×2; 82728; 82746; 83540; 83550; 83735; 84443; 84703; 85025 ×2; 85610; 85730; 82270; 85045; 80048; 80053; 84484 ×2; 86920; 85379; 84466; 80061; 93017; 71045; 78452; 71275; 74176; 93010; P9016; A9500; J2785; J3490 ×8; J1756; J1644; J1940; J7050; Q9969

== ENCOUNTER 2020-09-15 16:37 | Emergency (ER) | payer MEDICAID ==
--- NOTE | 2020-09-15 17:26 | ER Document Report ---
ED Medical Screen (RME) - General Chief Complaint: Pelvic Pain Stated Complaint: LOWER ABDOMINAL PAIN/VAGINAL BLEEDING Time Seen by Provider: 09/15/20 17:17 Primary Care Provider: ANITHA BHAT MD [Primary Care Provider] - Follow up as needed Mode of Arrival: Ambulatory Information source: Patient Notes: 40-year-old female presents to ED for left pelvic pain/lower abdominal pain since yesterday. She states it does radiate down the left leg as well. She is having nausea but no vomiting no fever. She states last bowel movement was last night. She states she always has hard bowel movements and has frequent constipation. She states her last menstrual period was September 01 through September 05. She states she did have dark brown vaginal draining Saturday and Saturday. She states she does have a history of fibroid uterus. She also has a history of anemia and has had blood transfusions and iron transfusions. She states she has had a power bilateral tubal ligation. We will get blood urine transvaginal ultrasound and she will be seen by another provider. States she did take a BC powder about 10:00 this morning and to BCs last night about 830. I have greeted and performed a rapid initial assessment of this patient. A comprehensive ED assessment and evaluation of the patient, analysis of test results and completion of medical decision making process will be conducted by an additional ED providers. TRAVEL OUTSIDE OF THE [place] IN LAST 30 DAYS: No - Related Data Allergies/Adverse Reactions: No Known Allergies Allergy (Verified 05/02/20 08:20) Past Medical History - Past Medical History Cardiac Medical History: Denies: Hx Atrial Fibrillation, Hx Coronary Artery Disease, Hx DVT, Hx Heart Attack, Hx Hypercholesterolemia, Hx Hypertension, Hx Peripheral Vascular Disease, Hx Pulmonary Embolism, Hx Heart Murmur Pulmonary Medical History: Denies: Hx Asthma, Hx COPD Neurological Medical History: Denies: Hx Seizures Endocrine Medical History: Denies: Hx Diabetes Mellitus Type 1, Hx Diabetes Mellitus Type 2, Hx Hyperthyroidism, Hx Hypothyroidism Renal/ Medical History: Denies: Hx Peritoneal Dialysis GI Medical History: Denies: Hx Cirrhosis, Hx Crohn's Disease, Hx Gastroesophageal Reflux Disease, Hx Hepatitis, Hx Ulcerative Colitis Musculoskeltal Medical History: Denies Hx Arthritis, Denies Hx Fibromyalgia, Denies Hx Gout Skin Medical History: Denies Hx Eczema, Denies Hx Psoriasis Psychiatric Medical History: Reports: Hx Depression - and anxiety Infectious Medical History: Denies: Hx Hepatitis Past Surgical History: Reports: Hx Tonsillectomy, Hx Tubal Ligation - Immunizations Hx Diphtheria, Pertussis, Tetanus Vaccination: Yes Physical Exam - Vital signs Vitals: Temp Pulse Resp BP Pulse Ox 98.4 F 78 20 147/82 H 100 09/15/20 16:56 09/15/20 16:56 09/15/20 16:56 09/15/20 16:56 09/15/20 16:56 Course - Vital Signs Vital signs: Temp Pulse Resp BP Pulse Ox 98.4 F 78 20 147/82 H 100 09/15/20 16:56 09/15/20 16:56 09/15/20 16:56 09/15/20 16:56 09/15/20 16:56 Doctor's Discharge - Discharge Referrals: ANITHA BHAT MD [Primary Care Provider] - Follow up as needed
[2020-09-15] MEDS ORDERED: ACETAMINOPHEN 325 MG TABLET PO ONE (17:27)
[2020-09-15 18:14] LABS: ALBUMIN 4.3 g/dL (3.5-5.0); ALKALINE PHOSPHATASE 96 U/L (38-126); ANION GAP 9 (5-19); ASPARTATE AMINO TRANSFERASE 20 U/L (14-36); BILIRUBIN,TOTAL 0.3 mg/dL (0.2-1.3); BLOOD UREA NITROGEN 10 mg/dL (7-20); CALCIUM 9.3 mg/dL (8.4-10.2); CARBON DIOXIDE 26 mmol/L (22-30); CHLORIDE 104 mmol/L (98-107); GLUCOSE 94 mg/dL (75-110); POTASSIUM 4.4 mmol/L (3.6-5.0); TOTAL PROTEIN 7.7 g/dL (6.3-8.2)
--- NOTE | 2020-09-15 18:21 | RADIOLOGY REPORT (SQ) ---
EXAM DESCRIPTION: U/S NON-OB PELVIS W/O DOP IMAGES COMPLETED DATE/TIME: 09/15/2020 6:08 pm REASON FOR STUDY: Left pelvic pain with dark vaginal drainage COMPARISON: None. TECHNIQUE: Dynamic and static grayscale images acquired of the pelvis via transabdominal approach an d recorded on PACS. Additional selected color Doppler and spectral images recorded. LIMITATIONS: None. FINDINGS: UTERUS: Enlarged, heterogeneous uterus with multiple fibroids. The largest measures 10.8 cm. ENDOMETRIAL STRIPE: Not seen. CERVIX: 3.1 cm. RIGHT OVARY AND DOPPLER: What is felt to represent the right ovary could represent a pedunculated fib roid. Positive color Doppler. LEFT OVARY AND DOPPLER: What is felt to represent the left ovary could represent a pedunculated fibro id. Color Doppler flow was present. FREE FLUID: None noted. OTHER: No other significant finding. MEASUREMENTS: UTERUS: 17.3 x 15.5 x 10.7 cm. ENDOMETRIAL STRIPE: Not seen. RIGHT OVARY: 2.3 x 1.9 x 1.8 cm. LEFT OVARY: 3.1 x 1.8 x 2.1 cm. IMPRESSION: Very enlarged fibroid uterus. Findings as described. TECHNICAL DOCUMENTATION: JOB ID: [id number] 2010 [employer]- All Rights Reserved Rev Reading location - IP/workstation name: [email or web address]
[2020-09-15 18:30] LABS: ABSOLUTE BASOPHILS # (AUTO) 0.1 10^3/uL (0.0-0.2); ABSOLUTE EOSINOPHILS # (AUTO) 0.3 10^3/uL (0.0-0.6); ABSOLUTE LYMPHOCYTES (AUTO) 1.9 10^3/uL (0.5-4.7); ABSOLUTE MONOCYTES (AUTO) 0.7 10^3/uL (0.1-1.4); ABSOLUTE NEUT (AUTO) 4.2 10^3/uL (1.7-8.2); EOSINOPHILS % (AUTO) 4.5 % (0-6); HEMATOCRIT 25.9 % (36.0-47.0); LYMPHOCYTES % (AUTO) 26.2 % (13-45); MEAN CORPUSCULAR HEMOGLOBIN 17.4 pg (27.0-33.4); MEAN CORPUSCULAR HGB CONC 29.6 g/dL (32.0-36.0); MONOCYTES % (AUTO) 9.7 % (3-13); PLATELET COUNT 307 10^3/uL (150-450); RED BLOOD COUNT 4.43 10^6/uL (3.72-5.28); RED CELL DISTRIBUTION WIDTH 19.2 % (11.5-14.0); SEGMENTED NEUTROPHILS % (AUTO) 58.6 % (42-78); TOTAL CELLS COUNTED % (AUTO) 100 %; WHITE BLOOD COUNT 7.1 10^3/uL (4.0-10.5)
[2020-09-15 18:37] LABS: HEMOGLOBIN 7.7 g/dL (12.0-15.5)
[2020-09-15 18:39] LABS: MEAN CORPUSCULAR VOLUME 59 fl (80-97)
[2020-09-15 18:44] LABS: ANISOCYTOSIS 1+; HYPOCHROMASIA 1+; OVALOCYTES 1+; POIKILOCYTOSIS 1+; POLYCHROMASIA 1+; TEAR DROP CELLS SLIGHT
[2020-09-15 18:45] LABS: PLATELET COMMENT ADEQUATE
[2020-09-15] MEDS ORDERED: KETOROLAC TROMETHAMINE 60 MG/2 ML SDV IM ONE (21:37)
[2020-09-15] MEDS ORDERED: ONDANSETRON 4 MG TAB.RAPDIS PO ONE (21:37)
--- NOTE | 2020-09-15 21:44 | ER Document Report ---
ED General - General Chief Complaint: Lower Abdominal Pain Stated Complaint: LOWER ABDOMINAL PAIN/VAGINAL BLEEDING Time Seen by Provider: 09/15/20 17:17 Primary Care Provider: LA NENA PATEL DO [NO LOCAL MD] - Follow up as needed ARAMIS HAMILTON MD [ACTIVE STAFF] - Follow up as needed Mode of Arrival: Ambulatory TRAVEL OUTSIDE OF THE [place] IN LAST 30 DAYS: No - HPI Notes: Patient is a 40-year-old female presents to the emergency department for evaluation of left lower abdomen/pelvic pain. It started yesterday. Sharp and stabbing. She states it occasionally radiates into her left leg. She tried BC powder without any significant relief. She denies any fevers or chills. She said some nausea but no emesis. She has chronic constipation, states is no different. She has had some urinary frequency starting last night. She denies any dysuria or sohail hematuria. She states has never had pain like this in the past. The patient does not have a history of menorrhagia. She has been diagnosed with anemia. She is post to be on oral iron supplementation, but does not tolerate it secondary to constipation. She does not follow with an PUBLIC RELATIONS WRITER regularly. - Related Data Allergies/Adverse Reactions: No Known Allergies Allergy (Verified 05/02/20 08:20) Past Medical History - General Information source: Patient - Social History Smoking Status: Never Smoker Family History: CAD, DM, Hypertension - Medical History Notes: Anemia - Past Medical History Cardiac Medical History: Denies: Hx Atrial Fibrillation, Hx Coronary Artery Disease, Hx DVT, Hx Heart Attack, Hx Hypercholesterolemia, Hx Hypertension, Hx Peripheral Vascular Disease, Hx Pulmonary Embolism, Hx Heart Murmur Pulmonary Medical History: Denies: Hx Asthma, Hx COPD Neurological Medical History: Denies: Hx Seizures Endocrine Medical History: Denies: Hx Diabetes Mellitus Type 1, Hx Diabetes Mellitus Type 2, Hx Hyperthyroidism, Hx Hypothyroidism Renal/ Medical History: Denies: Hx Peritoneal Dialysis GI Medical History: Denies: Hx Cirrhosis, Hx Crohn's Disease, Hx Gastroesophageal Reflux Disease, Hx Hepatitis, Hx Ulcerative Colitis Musculoskeletal Medical History: Denies Hx Arthritis, Denies Hx Fibromyalgia, Denies Hx Gout Skin Medical History: Denies Hx Eczema, Denies Hx Psoriasis Psychiatric Medical History: Reports: Hx Depression - and anxiety Infectious Medical History: Denies: Hx Hepatitis Past Surgical History: Reports: Hx Tonsillectomy, Hx Tubal Ligation - Immunizations Hx Diphtheria, Pertussis, Tetanus Vaccination: Yes Review of Systems - Review of Systems Constitutional: No symptoms reported EENT: No symptoms reported Cardiovascular: No symptoms reported Respiratory: No symptoms reported Gastrointestinal: See HPI Genitourinary: See HPI Female Genitourinary: No symptoms reported Musculoskeletal: No symptoms reported Skin: No symptoms reported Neurological/Psychological: No symptoms reported -: Yes All other systems reviewed and negative Physical Exam - Vital signs Vitals: Temp Pulse Resp BP Pulse Ox 98.4 F 78 20 147/82 H 100 09/15/20 16:56 09/15/20 16:56 09/15/20 16:56 09/15/20 16:56 09/15/20 16:56 - Notes Notes: Vital signs reviewed, please refer to chart. Head is normocephalic, atraumatic. Pupils equal round, reactive to light. Neck is supple without meningismus. Heart is regular rate and rhythm. Lungs are clear to auscultation bilaterally. Abdomen is soft, moderately tender in the left lower quadrant without rebound or guarding, normoactive bowel sounds throughout. No CVA tenderness. No peritoneal signs. Extremities without cyanosis, clubbing. Posterior calves are nontender. Peripheral pulses are equal. Skin is warm and dry. Patient is awake, alert, neurological exam is nonfocal. Course - Re-evaluation Re-evalutation: 09/15/20 21:48 Patient presents to the emergency department for evaluation. She was initially seen through triage. Laboratory investigations revealed a hemoglobin of 7.7. This is not a new problem for her. She has not been taking her iron supplementation. We talked at length about the risks associated with low hemoglobin and chronic anemia. I encouraged her to restart her iron. I also encouraged her to follow-up with a primary care provider as well as [employer]ATIONS WRITER. Her uterus is found to be enlarged and significantly fibroid, likely contributing to her menorrhagia. She voiced understanding to this information. There was no clear torsion or other abnormality on her ultrasound, but she does still have some significant tenderness. Her tenderness is actually more out of the pelvis than I would expect for an ovarian lesion of any sort. CT scan of the abdomen pelvis was ordered. I notified the patient of the need for a urinalysis, she voiced understanding. Patient is administered Toradol and Zofran, we will continue to monitor. 09/15/20 23:17 CT scan remarkable for enlarged uterus, constipation, no other acute findings. I talked at length about this with the patient. Serial abdominal exams are nonsurgical. Certainly her enlarged fibroid uterus combined with constipation could cause abdominal pain. She is not having any other constitutional symptoms. No other concerning findings. Still awaiting urinalysis. The patient was given instructions on a MiraLAX cleanout. She was given instructions that she should restart her iron. I will refer her onto primary care and [employer]ATIONS WRITER, again assuming that her urinalysis fails to show any signs of infection. She is amenable to this plan. 09/16/20 01:12 Urinalysis just now resulted and found to be unremarkable. Patient will be discharged. - Vital Signs Vital signs: Temp Pulse Resp BP Pulse Ox 98.4 F 78 20 147/82 H 100 09/15/20 16:56 09/15/20 16:56 09/15/20 16:56 09/15/20 16:56 09/15/20 16:56 - Laboratory Result Diagrams: 09/15/20 17:30 09/15/20 17:30 Laboratory results interpreted by me: 09/15/20 09/15/20 17:30 22:55 Hgb 7.7 L Hct 25.9 L MCV 59 L MCH 17.4 L MCHC 29.6 L RDW 19.2 H Ur Leukocyte Esterase TRACE H - Diagnostic Test Radiology reviewed: Reports reviewed Radiology results interpreted by me: 09/15/20 21:49 Pelvis Ultrasound 09/15/20 17:27 IMPRESSION: Very enlarged fibroid uterus. Findings as described. Discharge - Discharge Clinical Impression: Hypochromic microcytic anemia, Left lower quadrant abdominal pain Constipation Qualifiers: Constipation type: unspecified constipation type Qualified Code(s): K59.00 - Constipation, unspecified Condition: Stable Disposition: HOME, SELF-CARE Instructions: Abdominal Pain ([facility]), Anemia, Iron Deficiency ([facility]), Constipation ([facility]) Additional Instructions: Please restart iron and stool softeners as discussed. You can attempt a MiraLAX cleanout at home. Use 1 capful of MiraLAX in 7 to 10 fluid ounces of liquid hourly for 4 to 6 hours, or until a bowel movement is achieved. You can maintain your self on 1-2 doses a day of MiraLAX for your chronic constipation. Please follow-up with PUBLIC RELATIONS WRITER and primary care in the next 1 to 2 weeks. If your pain worsens, or you develop worsening or new concerning symptoms of any sort, please return immediately to the emergency department for evaluation. Referrals: LA NENA PATEL DO [NO LOCAL MD] - Follow up as needed ARAMIS HAMILTON MD [ACTIVE STAFF] - Follow up as needed
--- NOTE | 2020-09-15 22:47 | RADIOLOGY REPORT (SQ) ---
EXAM DESCRIPTION: CT ABDOMEN PELVIS WITHOUT IV CONTRAST COMPLETED DATE/TME: 09/15/2020 22:24 CLINICAL HISTORY: 40 years, Female, left flank pain COMPARISON: 05/01/2020 CT TECHNIQUE: 343 Images stored on PACS. All CT scanners at this facility use dose modulation, iterative reconstruction, and/or weight based dosing when appropriate to reduce radiation dose to as low as reasonably achievable (ALARA). [facility]: Dose Right [facility]: CareDose [facility]: Dose Right [facility]: Teradose 4D [facility]: [employer] LIMITATIONS: None. FINDINGS: The visualized lung bases are unremarkable. Osseous structures are grossly intact. Limited evaluation of the liver, spleen, adrenal glands, pancreas, kidneys is unremarkable. Negative for urinary tract calculus or hydronephrosis. No gross evidence for bowel obstruction. Redemonstrated is a well-defined, stable 5.9 x 3.4 cm cystic structure anterior to the liver, associated with the anterior peritoneal cavity. This likely reflects benign cyst of indeterminate etiology and significance. Abundant stool in the colon. Normal appendix. Redemonstrated is massive enlargement of the uterus with multiple uterine masses consistent with fibroid change. No free air or free fluid. IMPRESSION: Negative for urinary tract calculus or hydronephrosis. Fibroid change to the uterus, as before. Stable cystic structure in the anterior abdomen. Abundant stool in the colon TECHNICAL DOCUMENTATION: Quality ID # [id number]: Final reports with documentation of one or more dose reduction techniques (e.g., Automated exposure control, adjustment of the mA and/or kV according to patient size, use of iterative reconstruction technique) copyright 2011 [employer] ([employer] All Rights Reserved
[2020-09-16 00:46] LABS: APPEARANCE,URINE SLIGHTLY-CLOUDY; BILIRUBIN,URINE NEGATIVE (NEGATIVE); COLOR,URINE STRAW; GLUCOSE, URINE NEGATIVE (NEGATIVE); KETONES,URINE NEGATIVE (NEGATIVE); LEUKOCYTE ESTERASE,URINE TRACE (NEGATIVE); NITRITE,URINE NEGATIVE (NEGATIVE); PROTEIN,URINE NEGATIVE (NEGATIVE); URINE SPECIFIC GRAVITY 1.012; UROBILINOGEN,URINE NEGATIVE mg/dL (<2.0)
[2020-09-16 01:42] VITALS: BP 134/72
[2020-09-16 13:02] LABS: PATH REVIEW PATHOLOGIST REVIEWED
== END 2020-09-16 01:40 | disposition home or self-care (01) ==
LOC: ER 16:37
DX: K59.00 Constipation, unspecified (principal); D50.8 Other iron deficiency anemias; R10.32 Left lower quadrant pain; R10.30 Lower abdominal pain, unspecified; N93.9 Abnormal uterine and vaginal bleeding, unspecified
CPT/HCPCS: 99285; 96372; 36415; 87086; 84703; 85025; 80053; 81001; 76856; 74176; J3490; J1885